=== PATIENT | male | born 1955 | race Caucasian/White ===

== ENCOUNTER 2018-02-13 11:21 | Inpatient (IN) | payer MEDICARE, OTHER ==
[~2018-02-13] VITALS: Ht 167.6 cm; Wt 58.5 kg
[~2018-02-13 11:21] MED LIST changes: -ALLO-119 PO; -ATOR40TA24 PO; -INDO50CA92 PO; -METH4TAB67 PO; -OXYC-865 PO
[2018-02-13] MEDS: NS(*) 0.9% 1000 ML BAG 1,000 ML IV ONE ×2 (11:28→14:10)
--- NOTE | 2018-02-13 11:43 | ER Report ---
History and Physical Time Seen By MD: 11:40 Hx. of Stated Complaint: PT REPORTS RIGHT KNEE PAIN, REPORTS UNABLE TO GET UP FOR LAST FEW DAYS D/T PAIN , REPORTS HAS NOT EATEN OR DRANK ANYTHING SINCE MONDAY. (JARED IYER MD) HPI/ROS CHIEF COMPLAINT: Knee pain and not eating HISTORY OF PRESENT ILLNESS: Severe atraumatic right knee pain. Patient states that his right knee became swollen and acutely painful over the past 3 days. Symptoms began Monday. Because of the extreme pain with weightbearing he is basically lied in bed just ambulated to the bathroom. He states he has not eaten since Monday. Patient does have a history of gout but cannot recall if this feels similar. He denies any fevers or chills. He denies any traumatic injury. REVIEW OF SYSTEMS: Respiratory: No cough, no dyspnea. Cardiovascular: No chest pain, no palpitations. Gastrointestinal: No vomiting, no abdominal pain. Musculoskeletal: Chronic low back pain; right knee pain and swelling (JARED IYER MD) Allergies: Coded Allergies: No Known Drug Allergies (Unverified , 02/13/18) Home Meds Reported Medications Atorvastatin Calcium (LIPITOR) 40 Mg Tablet, 2 TAB PO HS, TAB 02/13/18 Allopurinol (ZYLOPRIM) 300 Mg Tablet, 100 MG PO QDAY, TAB 02/13/18 Metoprolol Tartrate (Metoprolol Tartrate) 25 Mg Tablet, 25 MG PO BID 08/09/12 Lisinopril (Lisinopril) 40 Mg Tablet, 20 MG PO DAILY 08/09/12 Hydrochlorothiazide (Hydrochlorothiazide) 25 Mg Tab, 25 MG PO QDAY 08/09/12 Aspirin (Aspirin) 325 Mg Tab, 325 MG PO QDAY 08/09/12 Discontinued Reported Medications Acetaminophen/Hydrocodone (Lortab 5/325 Mg) 5 Mg/325 Mg Tab, 1 TAB PO Q6H Y NO ALCOHOL/DRIVING 01/22/13 Diazepam (Valium) 5 Mg Tab, 5 MG PO TID Y NO ALCOHOL/DRIVING 01/22/13 Sildenafil Citrate (Viagra) 100 Mg Tablet, 50 MG PO PRN 08/09/12 Rosuvastatin Calcium (Crestor) 40 Mg Tablet, 20 MG PO QHS 08/09/12 Meloxicam (Mobic) 7.5 Mg Tablet, 7.5 MG PO DAILY 08/09/12 Hydrocodone Bit/Acetaminophen (Hydrocodone-Apap 10-500 Mg Tab) 1 Each Tablet, 1 EACH PO Q6H Y 08/09/12 Discontinued Scripts Indomethacin (INDOMETHACIN) 50 Mg Capsule, 50 MG PO TID for PAIN, #15 CAPSULE 0 Refills Prov:JARED IYER MD 02/13/18 Oxycodone Hcl/Acetaminophen (PERCOCET 5-325 MG TABLET) 1 Each Tablet, 1-2 EACH PO Q4-6H for PAIN, #25 TAB 0 Refills Prov:JARED IYER MD 02/13/18 Past Medical/Surgical History Past medical history for hypertension past medical history for gout (JARED IYER MD) Hx Smoking: Yes (JARED IYER MD) Constitutional Vital Sign - Last 24 Hours 02/13/18 02/13/18 02/13/18 02/13/18 11:22 11:23 11:30 11:51 Temp 98.2 Pulse 92 81 Resp 16 B/P (MAP) 84/64 84/64 (71) 80/73 (75) Pulse Ox 97 96 O2 Delivery Room Air 02/13/18 02/13/18 02/13/18 02/13/18 12:00 12:21 12:30 12:41 Pulse 94 B/P (MAP) 95/71 (79) 80/70 (73) 85/66 (72) 02/13/18 02/13/18 02/13/18 02/13/18 12:51 13:00 13:05 13:30 Pulse 86 72 B/P (MAP) 104/73 (83) 102/72 (82) Pulse Ox 96 92 02/13/18 02/13/18 02/13/18 13:35 14:00 14:05 Pulse 76 80 B/P (MAP) 108/72 (84) Pulse Ox 93 93 Intake and Output 02/13/18 02/13/18 02/14/18 14:59 22:59 06:59 Intake Total 1000 ml Balance 1000 ml (LAURORA,SHERIF V DO) Physical Exam General appearance: Alert no distress. [Right] knee: There is moderate swelling to the knee proper along with effusion There is no obvious deformity of the knee. There is moderate tenderness range of motion at the knee. The joint is stable with no comparable ligamentous laxity to the knee. There is no tenderness proximal or distal to the knee. Neurologic exam: The patient has normal sensation distal to the injury. Vascular exam: Normal pulses and capillary refill in the foot Skin exam: There is mild erythema over the lateral aspect of the right knee; knee proper sensitive to just light touch. DIFFERENTIAL DIAGNOSIS: After history and physical exam differential diagnosis was considered for knee injury including sprain, fracture, meniscus injury and soft tissue injury; gout; OA; infection (JARED IYER MD) Medical Decision Making Data Points Result Diagram: 02/15/18 0516 02/15/18 0516 Laboratory Hematology Test 02/13/18 00:00 02/13/18 11:25 02/13/18 12:50 Body Fluid Type synovial Body Fluid pH 8.0 pH Body Fluid Crystals None Body Fluid Total Protein 4.7 G/dl Red Blood Count 4.62 M/uL (4.00-5.60) Mean Corpuscular Volume 89.8 fL (80.0-96.0) Mean Corpuscular Hemoglobin 30.1 pg (26.0-33.0) Mean Corpuscular Hemoglobin Concent 33.6 g/dL (32.0-36.0) Red Cell Distribution Width 15.3 % (11.5-14.5) Mean Platelet Volume 8.3 fL (7.2-11.1) Neutrophils (%) (Auto) 81.5 % (39.4-72.5) Lymphocytes (%) (Auto) 12.0 % (17.6-49.6) Monocytes (%) (Auto) 5.9 % (4.1-12.4) Eosinophils (%) (Auto) 0.1 % (0.4-6.7) Basophils (%) (Auto) 0.5 % (0.3-1.4) Nucleated RBC Relative Count (auto) 0.0 /100WBC Neutrophils # (Auto) 10.4 K/uL (2.0-7.4) Lymphocytes # (Auto) 1.5 K/uL (1.3-3.6) Monocytes # (Auto) 0.7 K/uL (0.3-1.0) Eosinophils # (Auto) 0.0 K/uL (0.0-0.5) Basophils # (Auto) 0.1 K/uL (0.0-0.1) Nucleated RBC Absolute Count (auto) 0.00 K/uL Erythrocyte Sedimentation Rate > 130 mm/HOUR (0-20) Sodium Level 137 mmol/L (137-145) Potassium Level 3.9 mmol/L (3.5-5.0) Chloride Level 96 mmol/L (98-107) Carbon Dioxide Level 21 mmol/L (22-30) Blood Urea Nitrogen 37 mg/dl (9-21) Creatinine 1.70 mg/dl (0.66-1.25) Glomerular Filtration Rate Calc 40.9 Random Glucose 155 mg/dl (75-110) Calcium Level 11.0 mg/dl (8.4-10.2) Total Bilirubin 2.5 mg/dl (0.2-1.3) Aspartate Amino Transf (AST/SGOT) 21 U/L (0-35) Alanine Aminotransferase (ALT/SGPT) 18 U/L (0-56) Alkaline Phosphatase 95 U/L (0-126) C-Reactive Protein 35.7 mg/dl (<1.0) Total Protein 8.4 gm/dl (6.3-8.2) Albumin 4.1 g/dl (3.5-5.0) Body Fluid WBC 9273 Body Fluid RBC 7227 Chemistry Test 02/13/18 00:00 02/13/18 11:25 02/13/18 12:50 Body Fluid Type synovial Body Fluid pH 8.0 pH Body Fluid Crystals None Body Fluid Total Protein 4.7 G/dl White Blood Count 12.7 k/uL (4.5-11.0) Red Blood Count 4.62 M/uL (4.00-5.60) Hemoglobin 13.9 g/dL (14.0-18.0) Hematocrit 41.5 % (42.0-52.0) Mean Corpuscular Volume 89.8 fL (80.0-96.0) Mean Corpuscular Hemoglobin 30.1 pg (26.0-33.0) Mean Corpuscular Hemoglobin Concent 33.6 g/dL (32.0-36.0) Red Cell Distribution Width 15.3 % (11.5-14.5) Platelet Count 319 K/uL (150-450) Mean Platelet Volume 8.3 fL (7.2-11.1) Neutrophils (%) (Auto) 81.5 % (39.4-72.5) Lymphocytes (%) (Auto) 12.0 % (17.6-49.6) Monocytes (%) (Auto) 5.9 % (4.1-12.4) Eosinophils (%) (Auto) 0.1 % (0.4-6.7) Basophils (%) (Auto) 0.5 % (0.3-1.4) Nucleated RBC Relative Count (auto) 0.0 /100WBC Neutrophils # (Auto) 10.4 K/uL (2.0-7.4) Lymphocytes # (Auto) 1.5 K/uL (1.3-3.6) Monocytes # (Auto) 0.7 K/uL (0.3-1.0) Eosinophils # (Auto) 0.0 K/uL (0.0-0.5) Basophils # (Auto) 0.1 K/uL (0.0-0.1) Nucleated RBC Absolute Count (auto) 0.00 K/uL Erythrocyte Sedimentation Rate > 130 mm/HOUR (0-20) Glomerular Filtration Rate Calc 40.9 Calcium Level 11.0 mg/dl (8.4-10.2) Total Bilirubin 2.5 mg/dl (0.2-1.3) Aspartate Amino Transf (AST/SGOT) 21 U/L (0-35) Alanine Aminotransferase (ALT/SGPT) 18 U/L (0-56) Alkaline Phosphatase 95 U/L (0-126) C-Reactive Protein 35.7 mg/dl (<1.0) Total Protein 8.4 gm/dl (6.3-8.2) Albumin 4.1 g/dl (3.5-5.0) Body Fluid WBC 9273 Body Fluid RBC 7227 (LAURORA,SHERIF V DO) Microbiology Microbiology Date/Time Source Procedure Growth Status 02/13/18 00:00 Knee Fluid Right Gram Stain - Final Resulted 02/13/18 00:00 Knee Fluid Right Body Fluid Culture Pending Resulted 02/13/18 00:00 Knee Fluid Right Anaerobic Culture Pending Resulted (LAURORA,SHERIF V DO) EKG/Imaging Imaging FACILITY: [facility] [place] PATIENT NAME: Flaco Andrews : 1955 MR: [id number] V: [id number] EXAM DATE: ORDERING PHYSICIAN: JARED IYER TECHNOLOGIST: Location: [facility] - [place] Patient: Flaco Andrews : 1955 Visit/Account:[id number] Date of Sevice: 02/13/2018 Right knee Indication: Severe right knee pain Comparison: None available Findings: 3 views right knee were obtained. Osseous alignment is anatomic. No fracture or acute destructive osseous process. Enthesopathy is seen with spurring superior aspect of patella. Moderate joint effusion. IMPRESSION: 1. Mild degenerative change patellofemoral joint. Moderate effusion without acute osseous finding Report Dictated By: Eulogio Mccormack MD at 02/13/2018 12:32 PM Report E-Signed By: Eulogio Mccormack MD at 02/13/2018 12:33 PM WSN:[id number] (JARED IYER MD) ED Course/Re-evaluation ED Course Plan at this time we'll place an IV and given normal saline bolus. We will check CBC CMP x-ray of the right knee. We will obtain fluid for synovial analysis, culture, Gram stain. We'll give 50 mg Toradol and 50 mg of fentanyl for pain IV. Procedure: Arthrocentesis. After verbal informed consent from patient explaining the risks including infection and bleeding a arthrocentesis was performed on the knee. The arthrocentesis was performed after the patient was prepped and draped in the usual fashion. The joint was anesthetized with 1% lidocaine. Approximately 40 mL of yellow cloudy fluid was obtained. There were no complications. Fluid was sent for laboratory analysis including white cell count, Red cell count, crystal analysis, pH, protein, Gram stain, aerobic and anaerobic cultures. The procedure was performed by myself. 02/13/2018 2:39:06 pm awaiting results of synovial analysis. Gram stain however shows no organisms. Patient still having a fair amount of pain he is received a total of 300 mg of fentanyl, 50 mg of Toradol and 50 mg of indomethacin. We are going to have physical therapy come and evaluate the patient for crutches. If patient is able to we will discharge home with a prescription for indomethacin as well as Percocet. If patient is unable to ambulate on his own because he lives alone I did speak with Dr. Tuttle with guard to this patient. He states he would accept the patient for admission if he is unable to ambulate and care for himself. Decision to Disposition Date: Feb 13, 2018 Decision to Disposition Time: 16:00 (JARED IYER MD) ED Course 02/13/2018 3:20:25 pm Pt signed out to me pending synovial fluid analysis. pts has no crystals in the synovial fluid. this could be an early septic joint. Will draw blood cultures and start abx. will page orthopedics and hospitalist. 02/13/2018 3:28:12 pm Call out to DR. Cutler 02/13/2018 3:38:43 pm Still awaiting orthopedics. Did speak with Dr. Tuttle who accepts pt for admission Decision to Disposition Date: Feb 13, 2018 Decision to Disposition Time: 15:39 (SHERIF HDEZ DO) Depart Departure Latest Vital Signs Vital Signs Date Time Temp Pulse Resp B/P (MAP) Pulse Ox O2 Delivery O2 Flow Rate FiO2 02/13/18 14:05 80 93 02/13/18 14:00 108/72 (84) 02/13/18 11:22 98.2 16 Room Air (SHERIF HDEZ DO) Impression: Primary Impression: Cellulitis of knee, right Additional Impressions: Septic joint of right knee joint Knee pain, acute Disposition: Admitted from ER Problem Qualifiers Additional Impressions: Septic joint of right knee joint Septic arthritis organism: due to unspecified organism Qualified Codes: M00.9 - Pyogenic arthritis, unspecified Knee pain, acute Laterality: right Qualified Codes: M25.561 - Pain in right knee JARED IYER MD Feb 13, 2018 11:43 SHERIF HDEZ DO Feb 13, 2018 15:23
[2018-02-13] MEDS ORDERED: KETOROLAC 15 MG/ML VIAL IVP ONE (11:55)
[2018-02-13] MEDS ORDERED: fentaNYL CITR 100 MCG/2 ML AMP IVP ONE ×2 (11:55→13:45)
[2018-02-13 12:04] LABS: PLATELET COUNT, AUTOMATED 319 K/uL (150-450)
--- NOTE | 2018-02-13 12:37 | RADIOLOGY IMAGING REPORT ---
FACILITY: [facility] - [place] PATIENT NAME: Flaco Andrews : 1955 MR: [id number] V: [id number] EXAM DATE: ORDERING PHYSICIAN: JARED IYER TECHNOLOGIST: Location: [facility] - [place] Patient: Flaco Andrews : 1955 Visit/Account:[id number] Date of Sevice: 02/13/2018 Right knee Indication: Severe right knee pain Comparison: None available Findings: 3 views right knee were obtained. Osseous alignment is anatomic. No fracture or acute destructive osseous process. Enthesopathy is se en with spurring superior aspect of patella. Moderate joint effusion. IMPRESSION: 1. Mild degenerative change patellofemoral joint. Moderate effusion without acute osseous finding Report Dictated By: Eulogio Mccormack MD at 02/13/2018 12:32 PM Report E-Signed By: Eulogio Mccormack MD at 02/13/2018 12:33 PM WSN:[id number]
[2018-02-13] MEDS ORDERED: INDOMETHACIN 25 MG CAP PO ONE (14:00)
[2018-02-13] MEDS ORDERED: INDO50CA92 PO (14:43)
[2018-02-13] MEDS ORDERED: OXYC-865 PO (14:43)
[2018-02-13] MEDS ORDERED: cefTRIAXone 1 GM VIAL IVP ONE (15:40)
[2018-02-13] MEDS ORDERED: NS 0.9% IVPB ONE (15:40)
[2018-02-13] MEDS ORDERED: VANCOMYCIN IVPB ONE (15:40)
[2018-02-13] MEDS ORDERED: NS(*) 0.9% 1000 ML BAG 1,000 ML IV ONE (15:50)
[2018-02-13] MEDS ORDERED: VANCOMYCIN 1 GM ADDVIAL 1 GM in NS(*) 0.9% 250 ML ADDVAN BAG 250 ML IVPB ONE (15:50)
[2018-02-13 16:46] VITALS: BP 99/77
[2018-02-13] MEDS ORDERED: methylPREDNIS 4 MG TAB PO ONE ×2 (17:55→19:00)
[2018-02-13] MEDS ORDERED: ACETAMINOPHEN 500 MG TAB PO PRN (17:55)
[2018-02-13] MEDS ORDERED: INFLUENZA VIRUS VAC 0.5 ML SYR IM ONLY ONE (18:10)
--- NOTE | 2018-02-13 18:17 | History & Physical ---
History of Present Illness Chief Complaint Knee pain History of Present Illness This patient presented to the emergency room complaining of right knee pain. He reports that the pain started about 5 days ago and has progressed to the point where he could no longer get out of bed. He also reports being unable to eat or drink secondary to his limited mobility. He denies any fever or chills. History Problems: (1) Essential hypertension (2) Myocardial infarction (3) Gout Home Meds Active Scripts Indomethacin (INDOMETHACIN) 50 Mg Capsule, 50 MG PO TID for PAIN, #15 CAPSULE 0 Refills Prov:JARED IYER MD 02/13/18 Oxycodone Hcl/Acetaminophen (PERCOCET 5-325 MG TABLET) 1 Each Tablet, 1-2 EACH PO Q4-6H for PAIN, #25 TAB 0 Refills Prov:JARED IYER MD 02/13/18 Reported Medications Acetaminophen/Hydrocodone (Lortab 5/325 Mg) 5 Mg/325 Mg Tab, 1 TAB PO Q6H Y NO ALCOHOL/DRIVING 01/22/13 Diazepam (Valium) 5 Mg Tab, 5 MG PO TID Y NO ALCOHOL/DRIVING 01/22/13 Sildenafil Citrate (Viagra) 100 Mg Tablet, 50 MG PO PRN 08/09/12 Rosuvastatin Calcium (Crestor) 40 Mg Tablet, 20 MG PO QHS 08/09/12 Metoprolol Tartrate (Metoprolol Tartrate) 25 Mg Tablet, 25 MG PO BID 08/09/12 Meloxicam (Mobic) 7.5 Mg Tablet, 7.5 MG PO DAILY 08/09/12 Lisinopril (Lisinopril) 40 Mg Tablet, 20 MG PO DAILY 08/09/12 Hydrocodone Bit/Acetaminophen (Hydrocodone-Apap 10-500 Mg Tab) 1 Each Tablet, 1 EACH PO Q6H Y 08/09/12 Hydrochlorothiazide (Hydrochlorothiazide) 25 Mg Tab, 25 MG PO QDAY 08/09/12 Aspirin (Aspirin) 325 Mg Tab, 325 MG PO QDAY 08/09/12 Allergies: Coded Allergies: No Known Drug Allergies (Unverified , 02/13/18) Hx Smoking: Yes Smoking Status: Current: Every Day Smoker Caffeine Intake: Coffee Caffeine/Cups Per Day: OCC Hx Alcohol Use: No Hx Substance Use Disorder: No Review of Systems All Systems Reviewed/Normal: Yes, Except as Noted Musculoskeletal: Pain Exam Vital Signs Vital Signs Date Time Temp Pulse Resp B/P (MAP) Pulse Ox O2 Delivery O2 Flow Rate FiO2 02/13/18 16:46 98.1 75 14 99/77 (84) 94 Room Air Neuro: No Gross deficits Eyes: PERRLA Cardiovascular: Regular Rate and Rhythm Respiratory: Clear to Auscultation GI: Abd Soft and Non-Tender Musculoskeletal: Other (Right knee has minimal erythema, there is an effusion present and knee flexion is limited.) Extremities: No Edema Integumentary: No Cyanosis Medical Decision Making Data Points Result Diagram: 02/13/18 1125 02/13/18 1125 Item Value Date Time Body Fluid WBC 9273 02/13/18 1250 Body Fluid RBC 7227 02/13/18 1250 Body Fluid Neutrophils 77 % 02/13/18 1250 Body Fluid Lymphocytes 21 % 02/13/18 1250 Body Fluid Monocytes 2 % 02/13/18 1250 Body Fluid Crystals None 02/13/18 0000 Item Value Date Time C-Reactive Protein 35.7 mg/dl H 02/13/18 1125 Item Value Date Time Gram Stain - Final Resulted 02/13/18 0000 Knee Fluid Right Assessment and Plan Problems: (1) Septic joint of right knee joint Status: Acute Assessment & Plan: It is not definitive whether this is an infection, but given the lack of clarity we have elected to continue antibiotics until culture results are available. He is on empiric treatment with ceftriaxone and vancomycin. He did not receive a loading dose in the emergency department, but we have dosed his future doses based on his GFR. We did talk with Dr. Elmore, who recommended that we also start a Medrol Dose Pack. The joint fluid was negative for crystals. A uric acid level is pending. (2) Gout Assessment & Plan: He does have a history of gout in the past. Uric acid is pending as above. (3) Essential hypertension Assessment & Plan: He is on chronic treatment with hydrochlorothiazide, lisinopril, and metoprolol. All of these are currently on hold secondary to borderline blood pressure. Venous Thromboembolism Antithrombotics Is Pt On Any Antithrombotics?: No Exam Sepsis Risk: No Definite Risk Problem Qualifiers (1) Septic joint of right knee joint: Septic arthritis organism: due to unspecified organism Qualified Codes: M00.9 - Pyogenic arthritis, unspecified BOB DUGAN 5, 2018 18:17
[2018-02-13 19:38] VITALS: BP 86/64
[2018-02-13] MEDS: APAP/HYDROCODONE 325/5 TAB PO PRN (21:31)
[2018-02-13] MEDS: ATORVASTATIN 40 MG TAB PO SCH (21:31)
[2018-02-13] MEDS ORDERED: ALLO-119 PO (23:26)
[2018-02-13] MEDS ORDERED: ATOR40TA24 PO (23:29)
[2018-02-13 23:39] VITALS: BP 93/58
[2018-02-13] MEDS: NS(*) 0.9% 1000 ML BAG 1,000 ML IV PRN (23:47)
[2018-02-14] MEDS: APAP/HYDROCODONE 325/5 TAB PO PRN ×5 (03:25→20:04)
[2018-02-14 03:26] VITALS: BP 103/68
[2018-02-14 05:44] LABS: PLATELET COUNT, AUTOMATED 216 K/uL (150-450)
[2018-02-14 07:52] VITALS: BP 101/72
[2018-02-14] MEDS: ALLOPURINOL 100 MG TAB PO SCH (09:34)
[2018-02-14] MEDS: methylPREDNIS 4 MG TAB PO SCH ×2 (09:35→20:04)
[2018-02-14 10:20] VITALS: Ht 167.6 cm; Wt 58.5 kg
[2018-02-14 10:36] VITALS: BP 87/53
--- NOTE | 2018-02-14 10:40 | Antimicrobial Stewardship ---
Antimicrobial Stewardship MD Service: Hospitalist Indications: Other (Septic Knee) Antimicrobial Allergies NKDA Antimicrobial Used Vancomycin and Ceftriaxone Duration of Therapy: duration will be dependent upon ortho recommendations ( likely 14 days +) Start Date: Feb 13, 2018 Height (Calculated Centimeters: 167.167229 Weight (Calculated Kilograms): 58.769 Creatinine Cl Scr = 1.6, Cr CL = 48 ml/min Recommendations re: Culture Cultures pending, blood and knee aspirate Eligable for PO Conversion: No Comments Potential septic joint (knee aspirate, no crystals, 9000+ WBCs, CRP 35.7, ESR> 130), afebrile, elevated WBC. Cultures pending. Current therapy Vancomycin 1g x 1, then 1.25g IV q24h (trough 02/15/18 at 1000), Ceftriaxone 2g IV Q24H. Continue present management. Will follow cultures and reassess daily. Jing Sharp, PharmD, BCOP JING SHARP Feb 14, 2018 10:40
[2018-02-14] MEDS ORDERED: VANCOMYCIN(*) 1 GM VIAL 1 GM, VANCOMYCIN (*) 0.5 GM VIAL 0.25 GM in NS(*) 0.9% 250 ML B... IVPB SCH (11:00)
--- NOTE | 2018-02-14 11:03 | Hospitalist Progress Note ---
Subjective Progress Notes Subjective He reports pain is improved. No fever. Physical Exam Vital Signs Date Time Temp Pulse Resp B/P (MAP) Pulse Ox O2 Delivery O2 Flow Rate FiO2 02/14/18 10:36 97.7 12 87/53 (64) Room Air 02/14/18 07:54 93 02/14/18 07:52 83 Intake and Output 02/15/18 06:59 Intake Total 480 ml Output Total 225 ml Balance 255 ml Intake Oral 480 ml Output Urine Total 225 ml # Voids 1 General Appearance: Alert, Awake Cardiovascular: Regular Rate and Rhythm Respiratory: Clear to Auscultation GI: Soft and Non-Tender Extremities: Warm, Perfused, Other (right knee with small-moderate effusion/no callor/erythema noted/decreased ROM) Psych: Alert & Oriented X3 Result Diagram: 02/14/1851902/14/18 05 Assessment and Plan Problems: (1) Septic joint of right knee joint Status: Acute Assessment & Plan: It is not definitive whether this is an acute infection ( vs. gout), but given the lack of clarity we have elected to continue antibiotics until culture results are final. He is on empiric treatment with IV ceftriaxone and vancomycin. Dr. Tuttle did talk with Dr. Elmore, who recommended that we also start a Medrol Dose Pack. The joint fluid was negative for crystals and uric acid level is in normal range. 24 hour collection for uric acid is pending. (2) Gout Assessment & Plan: He does have a history of gout in the past. Uric acid 24 hour collection is pending as above. (3) Essential hypertension Assessment & Plan: He is on chronic treatment with hydrochlorothiazide, lisinopril, and metoprolol. All of these are currently on hold secondary to borderline blood pressure readings/dehydration. Exam Sepsis Risk: No Definite Risk Problem Qualifiers (1) Septic joint of right knee joint: Septic arthritis organism: due to unspecified organism Qualified Codes: M00.9 - Pyogenic arthritis, unspecified MARIA ESTHER STOUT MD Feb 14, 2018 11:02
[2018-02-14] MEDS: NS(*) 0.9% 1000 ML BAG 1,000 ML IV PRN (11:40)
[2018-02-14] MEDS ORDERED: methylPREDNIS 4 MG TAB PO SCH (13:00)
[2018-02-14] MEDS: cefTRIAXone 2 GM VIAL IVP SCH (15:54)
[2018-02-14] MEDS ORDERED: VANCOMYCIN HCL(*) 0.750 GM ADD 0.75 GM in NS(*) 0.9% 250 ML ADDVAN BAG 250 ML IVPB SCH (16:00)
[2018-02-14 16:12] VITALS: BP 108/66
[2018-02-14 20:01] VITALS: BP 118/81
[2018-02-14] MEDS: ATORVASTATIN 40 MG TAB PO SCH (20:04)
[2018-02-15 02:03] VITALS: BP 137/96
[2018-02-15] MEDS: APAP/HYDROCODONE 325/5 TAB PO PRN ×5 (05:05→21:42)
[2018-02-15 05:54] LABS: PLATELET COUNT, AUTOMATED 269 K/uL (150-450)
[2018-02-15 07:33] VITALS: BP 119/85
[2018-02-15] MEDS ORDERED: methylPREDNIS 4 MG TAB PO ONE ×2 (08:00→21:00)
[2018-02-15] MEDS: ALLOPURINOL 100 MG TAB PO SCH (08:53)
[2018-02-15] MEDS: methylPREDNIS 4 MG TAB PO SCH ×3 (08:54→17:47)
[2018-02-15] MEDS: VANCOMYCIN(*) 1 GM VIAL 1 GM in NS(*) 0.9% 250 ML ADDVAN BAG 250 ML IVPB SCH ×2 (10:43→22:38)
--- NOTE | 2018-02-15 11:17 | Hospitalist Progress Note ---
Subjective Progress Notes Subjective No new complaints. Knee pain is improved. Physical Exam Vital Signs Date Time Temp Pulse Resp B/P (MAP) Pulse Ox O2 Delivery O2 Flow Rate FiO2 02/15/18 07:45 94 Room Air 02/15/18 07:33 98.5 77 16 119/85 (96) Intake and Output 02/16/18 06:59 Intake Total 540 ml Balance 540 ml Intake Oral 540 ml # Voids 1 General Appearance: Alert, Awake Neuro: No Gross deficits Eyes: PERRLA Cardiovascular: Regular Rate and Rhythm Respiratory: Clear to Auscultation GI: Soft and Non-Tender Extremities: Warm, Perfused, Other (R knee with moderate effusion. No increased warmth to touch. ) Integumentary: Other (Bandage over arthrocentesis site, medial R knee.) Psych: Appropriate Mood & Affect Result Diagram: 02/15/1851502/15/18515 Assessment and Plan Problems: (1) Septic joint of right knee joint Status: Acute Assessment & Plan: It is not definitive whether this is an acute infection ( vs. gout), but given the lack of clarity we have elected to continue antibiotics until culture results are final. All cultures are no growth to date. He is on empiric treatment with IV ceftriaxone and vancomycin. His renal function has improved and his Vanco dose has been adjusted. Dr. Tuttle did talk with Dr. Elmore, who recommended that we also start a Medrol Dose Pack. The patient feels much better today. The joint fluid was negative for crystals and uric acid level is in normal range. 24 hour collection for uric acid is pending. The patient was quite dehydrated on admission (Cr 1.7) and the patient admits he does not drink fluids hardly ever at home. (2) Gout Assessment & Plan: He does have a history of gout in the past. Uric acid 24 hour collection is pending as above. (3) Essential hypertension Assessment & Plan: He is on chronic treatment with hydrochlorothiazide, lisinopril, and metoprolol. All of these are currently on hold secondary to borderline blood pressure readings/dehydration. Time Spent on Plan of Care: < 30 min Exam Sepsis Risk: No Definite Risk Problem Qualifiers (1) Septic joint of right knee joint: Septic arthritis organism: due to unspecified organism Qualified Codes: M00.9 - Pyogenic arthritis, unspecified SARAH STOUT MD Feb 15, 2018 11:17
[2018-02-15 11:39] VITALS: BP 129/89
[2018-02-15] MEDS: NS(*) 0.9% 1000 ML BAG 1,000 ML IV PRN (12:30)
--- NOTE | 2018-02-15 14:29 | Medical Nutrition Therapy ---
Nutrition Anthropometrics Height (Inches): 66.00 Height (Calculated Centimeters: 167.233282 Weight (Pounds): 129 Weight (Calculated Kilograms): 58.769 Daniel Nutrition Score: Adequate Daniel Nutrition Risk Score: 18 Dietary Referral Nutrition Risk Factors: Nutrition Risk Comment: Physical Findings Physical Appearance: BMI 20.9 WNR Skin Appearance Skin Appearance: Edema Edema Location Modifier: Edema Location: Type of Edema: Degree of Edema: Gastrointestinal Symptoms GI Symtoms: Tube Present: Bowel Sounds: Recent Bowel Pattern: Stool Characteristics: Nutritional Diagnosis Nutritional Risk Acuity 2: Sepsis Nutritional Risk Acuity 4: Stable Weight Past Medical History: Cellulitis of knee, myocardial infarction, Gout, HTN, septic joint of right knee Nutritional Acuity: 2-Moderate Nutrition Diagnosis: Inadequate Food Intake Nutrition Problem/Etiology/Sym: Increase nutrient needs related to physiological causes as evidence by joint sepsis. Energy Requirement: 1898 (Ector-St. Jeor X 1.1 SF) Protein Requirement: 65 (1.1g/kg protein to help with healing) Fluid Requirement: 1898 (1ml/kcal) Diet Type: Diet as Tolerated HOWARD/REG Nutrition Intervention: Cont diet as ordered, Encourage intake, HS snack ( PROTEIN SHAKE ) Nutrition Monitoring & Eval RD Patient Assessment Time: [address] Assessment Type: RD Screen Patient Nutrition Acuity: 2-Moderate Follow Up Date: Feb 19, 2018 Nutritional Comment: 02/14 Pt admitted for septic joint in right knee. Pt states he has severe pain in right knee. Pt states he was unable to eat and drink since Monday, due to knee mobility. Pt has elevated creatinine (1.6) and BUN (45), possibly cause due to hydration status. Pt is on regular diet with 100% oral intake. Continue to monitor pt progress, labs and encourage intake. [place] 02/15 Pt continues on regular diet with 100% oral intake. Offer pt protein shakes to rod buster helper in wound healing. Pt states his knee pain has improved. Pt renal function has improved, creatinine (.9) where yesterday it was (1.6). Na (135), BUN decreased from (45 to 31). Pt does have elevated random blood glucose (139). Continue to monitor pt clinical progress, labs and encourage intake. [place] PATY [place] Feb 15, 2018 12:45
[2018-02-15] MEDS: cefTRIAXone 2 GM VIAL IVP SCH (15:18)
[2018-02-15 16:05] VITALS: BP 146/94
[2018-02-15 19:46] VITALS: BP 158/97
[2018-02-15] MEDS: ATORVASTATIN 40 MG TAB PO SCH (21:41)
[2018-02-15 23:22] VITALS: BP 118/71
[2018-02-16] MEDS: NS(*) 0.9% 1000 ML BAG 1,000 ML IV PRN (00:40)
[2018-02-16] MEDS: APAP/HYDROCODONE 325/5 TAB PO PRN ×3 (02:31→10:42)
[2018-02-16 03:11] VITALS: BP 133/78
[2018-02-16 06:19] LABS: PLATELET COUNT, AUTOMATED 296 K/uL (150-450)
[2018-02-16 07:41] VITALS: BP 151/94
[2018-02-16] MEDS: methylPREDNIS 4 MG TAB PO SCH ×2 (08:00→12:50)
[2018-02-16] MEDS ORDERED: methylPREDNIS 4 MG TAB PO ONE (08:00)
[2018-02-16] MEDS: ALLOPURINOL 100 MG TAB PO SCH (08:47)
[2018-02-16] MEDS ORDERED: LOR5/325 PO (09:47)
[2018-02-16] MEDS ORDERED: METH4TAB67 PO (09:47)
--- NOTE | 2018-02-16 09:51 | Hospitalist Depart ---
Discharge Summary Reason for Hosp/Final Diag: (1) Septic joint of right knee joint Status: Acute Hospital Course & Plan: He did present with pain and swelling of the right knee. He did have an arthrocentesis performed in the emergency room. We placed him on empiric treatment with ceftriaxone and vancomycin. We also placed him on methylprednisolone for treatment of possible acute gout. His fluid was negative for crystals, but cultures were also negative. We have stopped the antibiotics and placed him on a taper of steroids. (2) Gout Hospital Course & Plan: He does have a history of gout in the past. Uric acid 24 hour collection is pending. (3) Essential hypertension Hospital Course & Plan: He is on chronic treatment with hydrochlorothiazide, lisinopril, and metoprolol. The diuretic has been discontinued. Departure Latest Vital Signs Vital Signs 02/16/18 07:41 Temp 97.7 Pulse 63 Resp 18 B/P (MAP) 151/94 (113) Pulse Ox 95 O2 Delivery Room Air Weight (Pounds): 129 Weight (Ounces): 9.0 Result Diagram: 02/16/18 0545 02/16/18 0545 Condition: Improved Discharge: Home, Self Care Discharge Instructions Home Meds Active Scripts Methylprednisolone (METHYLPREDNISOLONE) 4 Mg Tablet, 4 MG PO DIRECTED, #10 TAB Take 1 tab QID x 1 day, then 1 tab TID x 1 day, then 1 tab BID x 1 day, then 1 tab QD x 1 day Prov:BOB DUGAN DO 02/16/18 Hydrocodone Bit/Acetaminophen (HYDROCODON-ACETAMINOPHEN 5-325) 1 Each Tablet, 1 EACH PO Q4H Y for PAIN, #20 TAB Prov:BOB DUGAN DO 02/16/18 Reported Medications Atorvastatin Calcium (LIPITOR) 40 Mg Tablet, 2 TAB PO HS, TAB 02/13/18 Allopurinol (ZYLOPRIM) 300 Mg Tablet, 100 MG PO QDAY, TAB 02/13/18 Metoprolol Tartrate (Metoprolol Tartrate) 25 Mg Tablet, 25 MG PO BID 08/09/12 Lisinopril (Lisinopril) 40 Mg Tablet, 20 MG PO DAILY 08/09/12 Aspirin (Aspirin) 325 Mg Tab, 325 MG PO QDAY 08/09/12 Discontinued Reported Medications Hydrochlorothiazide (Hydrochlorothiazide) 25 Mg Tab, 25 MG PO QDAY 08/09/12 Acetaminophen/Hydrocodone (Lortab 5/325 Mg) 5 Mg/325 Mg Tab, 1 TAB PO Q6H Y NO ALCOHOL/DRIVING 01/22/13 Diazepam (Valium) 5 Mg Tab, 5 MG PO TID Y NO ALCOHOL/DRIVING 01/22/13 Sildenafil Citrate (Viagra) 100 Mg Tablet, 50 MG PO PRN 08/09/12 Rosuvastatin Calcium (Crestor) 40 Mg Tablet, 20 MG PO QHS 08/09/12 Meloxicam (Mobic) 7.5 Mg Tablet, 7.5 MG PO DAILY 08/09/12 Hydrocodone Bit/Acetaminophen (Hydrocodone-Apap 10-500 Mg Tab) 1 Each Tablet, 1 EACH PO Q6H Y 08/09/12 Discontinued Scripts Indomethacin (INDOMETHACIN) 50 Mg Capsule, 50 MG PO TID for PAIN, #15 CAPSULE 0 Refills Prov:JARED IYER MD 02/13/18 Oxycodone Hcl/Acetaminophen (PERCOCET 5-325 MG TABLET) 1 Each Tablet, 1-2 EACH PO Q4-6H for PAIN, #25 TAB 0 Refills Prov:JARED IYER MD 02/13/18 Diet: Regular Activity: As Tolerated Venous Thromboembolism Antithrombotics Is Pt On Any Antithrombotics?: No Problem Qualifiers (1) Septic joint of right knee joint: Septic arthritis organism: due to unspecified organism Qualified Codes: M00.9 - Pyogenic arthritis, unspecified BOB DUGAN DO Feb 16, 2018 09:51
[2018-02-16 11:05] VITALS: BP 140/79
--- NOTE | 2018-02-16 12:43 | RADIOLOGY IMAGING REPORT ---
FACILITY: [facility] PATIENT NAME: Flaco Andrews : 1955 MR: [id number] V: [id number] EXAM DATE: ORDERING PHYSICIAN: BOB DUGAN TECHNOLOGIST: Location: [facility] - [place] Patient: Flaco Andrews : 1955 Visit/Account:[id number] Date of Sevice: 02/16/2018 EXAMINATION: Right LOWER EXTREMITY VENOUS DOPPLER ULTRASOUND DATE: 02/16/2018 12:35 PM CLINICAL INFORMATION: US REASON FOR STUDY: History of DVT TECHNIQUE: Grayscale, color Doppler, and spectral Doppler ultrasound was performed of the lower extre mity veins to evaluate for deep venous thrombosis. COMPARISON: None FINDINGS: The right common femoral, femoral, and popliteal veins are compressible with normal flow on color Dop pler imaging. There is also normal Doppler flow of the profunda femoris and greater saphenous veins a t the confluence with the common femoral vein. The right posterior tibial and peroneal veins demonstrate normal flow IMPRESSION: No evidence of deep venous thrombosis in the right lower extremity veins. Report Dictated By: Rosita Liu MD at 02/16/2018 12:35 PM Report E-Signed By: Rosiat Liu MD at 02/16/2018 12:39 PM WSN:[id number]
[2018-02-17] MEDS ORDERED: methylPREDNIS 4 MG TAB PO ONE (08:00)
[2018-02-17] MEDS ORDERED: methylPREDNIS 4 MG TAB PO SCH (08:00)
[2018-02-18] MEDS ORDERED: methylPREDNIS 4 MG TAB PO ONE (08:00)
[2018-02-18] MEDS ORDERED: methylPREDNIS 4 MG TAB PO SCH (08:00)
[2018-02-19] MEDS ORDERED: methylPREDNIS 4 MG TAB PO SCH (08:00)
== END 2018-02-16 12:55 | disposition home or self-care (01) | DRG 550 ==
LOC: ER 11:31 → MED 16:14
PROVIDERS: ADMIT Family Medicine; ATTEND Family Medicine
DX: M00.9 Pyogenic arthritis, unspecified (principal); E86.0 Dehydration; I10 Essential (primary) hypertension; M1A.9XX0 Chronic gout, unspecified, without tophus (tophi); I25.2 Old myocardial infarction; Z95.5 Presence of coronary angioplasty implant and graft
CPT/HCPCS: 36415; 80202; 82040; 82247; 82310; 82374; 82435; 82565; 82945; 82947; 83986; 84075; 84132; 84155; 84157; 84295; 84450; 84460; 84520; 84550; 84560; 85025; 85651; 86140; 87040; 87071; 87073; 87205; 89050; 89060; J0696; J1885; J3010; J3370; J7030; J7050; J7509

== ENCOUNTER → 2018-02-13 | Outpatient (CLI) | payer OTHER ==
[~2018-02-13] MED LIST: ALLO-119 PO; ASP325 PO; ATOR40TA24 PO; DIA5 PO; HCTZ25 PO; HYDR-3629 PO; INDO50CA92 PO; LISI-374 PO; LOR5/325 PO; MELO-149 PO; METH4TAB67 PO; METO25TA93 PO; OXYC-717 PO; OXYC-865 PO; ROSU40TA18 PO; SILD100T59 PO; [UNRECOGNIZED DRUG - REMARK]
[2018-02-14 10:20] VITALS: BMI 20.8
== END ==
LOC: AMB 10:56
PROVIDERS: ATTEND Nurse Practitioner
DX: M25.561 Pain in right knee (principal)
CPT/HCPCS: A0425; A0427

== ENCOUNTER 2018-02-16 13:47 | Outpatient (RCR) | payer OTHER ==
[2018-02-14 10:20] VITALS: BMI 20.8
[~2018-02-16 13:47] MED LIST changes: +ALLO-119 PO; +ATOR40TA24 PO; +INDO50CA92 PO; +METH4TAB67 PO; +OXYC-865 PO
--- NOTE | 2018-02-17 13:03 | Transitional Care Management ---
Assessment Visit Type: Home Visit Spoke with: Flaco Cardiac: WNL Cardiac Comment: 02/17 Encouraged him to check his blood pressure. He does not have a device, but I recomended walking to [facility] to use the machine in the pharmacy. Respiratory: WNL GI: Nutrition: WNL Constipation?: No : WNL Musculoskeletal, Exercise: WNL Except Musculoskeletal, Excercise Com: 02/17 Right knee is still very sore. He usses a walker. Mobility Comment: 02/17 I helped him clear walkways. He lives in a one room apt with no storage, so many items are on the floor. Integumentary: WNL Feeling of Well Being: WNL Except Feeling of Well Being Comment: "I am going to have back surgery on 03/02. Suzette worried about that." Socialization: WNL Except Socialization Comment: 02/17 He has no family in the area, and has little contact with them. Has no close friends. His landlord checks in on him. Pain/Management: WN Except Pain/Management Comment: 02/17 He has chronic back pain that is unchanged. Right knee pain is better. He is taking pain pills as ordered. Scheduled Follow-Up with Provi: Yes (02/17 he sees his PCP on 02/22 for surgery clearence.) Questions for Future PCP Visit: Review medications. Following Discharge Instructio: Yes TCM Discharge Criteria Medication Knowledge: 02/17 We reviewed his medications. I encouraged him to keep a list of current medications in his wallet. Transitional Care Comment: 02/15 He agrees to the program, but declines the home visit. We discussed the need for him to be familiar with his medications, and carry a current list with him. 02/17 I reviewed his med name and purpose, next time I will work on doses. He moves safetly with a walker. Sees his PCP 02/22, I will call him 02/23. ADRIENNE REDDY Feb 17, 2018 13:03
--- NOTE | 2018-02-26 11:30 | Transitional Care Management ---
Assessment Cardiac: WNL Cardiac Comment: 02/17 Encouraged him to check his blood pressure. He does not have a device, but I recomended walking [facility] to use the machine in the pharmacy. Respiratory: WNL GI: Nutrition: WNL Constipation?: No : WNL Musculoskeletal, Exercise: WNL Except Musculoskeletal, Excercise Com: 02/17 Right knee is still very sore. He usses a walker. Mobility Comment: 02/17 I helped him clear walkways. He lives in a one room apt with no storage, so many items are on the floor. Integumentary: WNL Feeling of Well Being: WNL Except Feeling of Well Being Comment: "I am going to have back surgery on 03/02. Suzette worried about that." Socialization: WNL Except Socialization Comment: 02/17 He has no family in the area, and has little contact with them. Has no close friends. His landlord checks in on him. Pain/Management: WN Except Pain/Management Comment: 02/17 He has chronic back pain that is unchanged. Right knee pain is better. He is taking pain pills as ordered. Scheduled Follow-Up with Provi: Yes (02/17 he sees his PCP on 02/22 for surgery clearence.) Questions for Future PCP Visit: Review medications. Following Discharge Instructio: Yes TCM Discharge Criteria Medication Knowledge: 02/17 We reviewed his medications. I encouraged him to keep a list of current medications in his wallet. Transitional Care Comment: 02/15 He agrees to the program, but declines the home visit. We discussed the need for him to be familiar with his medications, and carry a current list with him. 02/17 Home visit. I reviewed his med name and purpose, next time I will work on doses. He moves safetly with a walker. Sees his PCP 02/22, I will call him 02/23. 02/23 Unable to contact, The phone number he has provided goes straight to voicemail, and the voice says the voicemail belongs to John. 02/26 Unable to contact, incorrect phone number. Discharged from the program. ADRIENNE REDDY Feb 26, 2018 11:30
== END 2018-02-26 12:59 | disposition home or self-care (01) ==
LOC: TCM 13:47
PROVIDERS: ATTEND Nurse Practitioner
DX: Z02.9 Encounter for administrative examinations, unspecified (principal)

== ENCOUNTER 2018-03-21 09:29 | Emergency (ER) | payer OTHER ==
[2018-02-14 10:20] VITALS: Wt 56.7 kg
[~2018-03-21 09:29] MED LIST changes: -SULF-198 PO
--- NOTE | 2018-03-21 09:40 | ER Report ---
History and Physical Time Seen By MD: 09:39 Hx. of Stated Complaint: EMS REPORTS THAT THE PATIENT FEELS HE HIS HAVING A FLARE-UP OF HIS GOUT HPI/ROS CHIEF COMPLAINT: Left hand pain and swelling HISTORY OF PRESENT ILLNESS: 62-year-old male long history of spondylosis of the spine and chronic back pain chronic leg discomfort comes in today with some swelling to his left hand does state he has a history of gout last time he took his oxycodone was several weeks ago patient states that he noticed before 5 days ago some redness and swelling in the 1st and 2nd metacarpal of the left hand nondominant patient denies any fever chills or sweats nausea vomiting urinary bladder bowel incontinence numbness or saddle paresthesias or distal complaints noted REVIEW OF SYSTEMS: Respiratory: No cough, no dyspnea. Cardiovascular: No chest pain, no palpitations. Gastrointestinal: No vomiting, no abdominal pain. Musculoskeletal: Left hand redness and pain Remainder of the 14 system rev: Yes Allergies: Coded Allergies: No Known Drug Allergies (Unverified , 02/13/18) Home Meds Active Scripts Methylprednisolone (METHYLPREDNISOLONE) 4 Mg Tablet, 4 MG PO DIRECTED, #10 TAB Take 1 tab QID x 1 day, then 1 tab TID x 1 day, then 1 tab BID x 1 day, then 1 tab QD x 1 day Prov:BOB DUGAN DO 02/16/18 Hydrocodone Bit/Acetaminophen (HYDROCODON-ACETAMINOPHEN 5-325) 1 Each Tablet, 1 EACH PO Q4H Y for PAIN, #20 TAB Prov:BOB DUGAN DO 02/16/18 Reported Medications Atorvastatin Calcium (LIPITOR) 40 Mg Tablet, 2 TAB PO HS, TAB 02/13/18 Allopurinol (ZYLOPRIM) 300 Mg Tablet, 100 MG PO QDAY, TAB 02/13/18 Metoprolol Tartrate (Metoprolol Tartrate) 25 Mg Tablet, 25 MG PO BID 08/09/12 Lisinopril (Lisinopril) 40 Mg Tablet, 20 MG PO DAILY 08/09/12 Aspirin (Aspirin) 325 Mg Tab, 325 MG PO QDAY 08/09/12 Reviewed Nurses Notes: Yes Old Medical Records Reviewed: Yes Hx Smoking: Yes Smoking Status: Current: Every Day Smoker Hx Substance Use Disorder: No Hx Alcohol Use: No Constitutional Vital Sign - Last 24 Hours 03/21/18 09:31 Temp 99.5 Pulse 78 Resp 20 B/P (MAP) 93/61 Pulse Ox 97 O2 Delivery Room Air Physical Exam General appearance: Alert no distress. Respiratory: Chest is non tender, lungs are clear to auscultation. Cardiac: Regular rate and rhythm [ ] Left hand examination shows redness and swelling to the 1st and 2nd metacarpal there is pain with extension and flexion of the 1st and 2nd digit no pain with the thenar eminence no pain with supination or pronation of the thumb there is pain however with extension and flexion of the wrist neurovascularly intact otherwise unremarkable DIFFERENTIAL DIAGNOSIS: After history and physical exam differential diagnosis was considered for gout versus cellulitis versus arthritis Medical Decision Making Data Points Result Diagram: 03/21/18 09 Laboratory Hematology Test 03/21/18 09:25 03/21/18 10:09 Red Blood Count 4.83 M/uL (4.00-5.60) Mean Corpuscular Volume 89.3 fL (80.0-96.0) Mean Corpuscular Hemoglobin 30.2 pg (26.0-33.0) Mean Corpuscular Hemoglobin Concent 33.8 g/dL (32.0-36.0) Red Cell Distribution Width 17.1 % (11.5-14.5) Mean Platelet Volume 8.2 fL (7.2-11.1) Neutrophils (%) (Auto) 79.6 % (39.4-72.5) Lymphocytes (%) (Auto) 11.6 % (17.6-49.6) Monocytes (%) (Auto) 7.4 % (4.1-12.4) Eosinophils (%) (Auto) 0.5 % (0.4-6.7) Basophils (%) (Auto) 0.9 % (0.3-1.4) Nucleated RBC Relative Count (auto) 0.0 /100WBC Neutrophils # (Auto) 10.1 K/uL (2.0-7.4) Lymphocytes # (Auto) 1.5 K/uL (1.3-3.6) Monocytes # (Auto) 0.9 K/uL (0.3-1.0) Eosinophils # (Auto) 0.1 K/uL (0.0-0.5) Basophils # (Auto) 0.1 K/uL (0.0-0.1) Nucleated RBC Absolute Count (auto) 0.01 K/uL Erythrocyte Sedimentation Rate 90 mm/HOUR (0-20) Uric Acid 4.4 mg/dl (3.5-8.5) C-Reactive Protein 5.9 mg/dl (<1.0) Chemistry Test 03/21/18 09:25 03/21/18 10:09 White Blood Count 12.6 k/uL (4.5-11.0) Red Blood Count 4.83 M/uL (4.00-5.60) Hemoglobin 14.6 g/dL (14.0-18.0) Hematocrit 43.2 % (42.0-52.0) Mean Corpuscular Volume 89.3 fL (80.0-96.0) Mean Corpuscular Hemoglobin 30.2 pg (26.0-33.0) Mean Corpuscular Hemoglobin Concent 33.8 g/dL (32.0-36.0) Red Cell Distribution Width 17.1 % (11.5-14.5) Platelet Count 246 K/uL (150-450) Mean Platelet Volume 8.2 fL (7.2-11.1) Neutrophils (%) (Auto) 79.6 % (39.4-72.5) Lymphocytes (%) (Auto) 11.6 % (17.6-49.6) Monocytes (%) (Auto) 7.4 % (4.1-12.4) Eosinophils (%) (Auto) 0.5 % (0.4-6.7) Basophils (%) (Auto) 0.9 % (0.3-1.4) Nucleated RBC Relative Count (auto) 0.0 /100WBC Neutrophils # (Auto) 10.1 K/uL (2.0-7.4) Lymphocytes # (Auto) 1.5 K/uL (1.3-3.6) Monocytes # (Auto) 0.9 K/uL (0.3-1.0) Eosinophils # (Auto) 0.1 K/uL (0.0-0.5) Basophils # (Auto) 0.1 K/uL (0.0-0.1) Nucleated RBC Absolute Count (auto) 0.01 K/uL Erythrocyte Sedimentation Rate 90 mm/HOUR (0-20) Uric Acid 4.4 mg/dl (3.5-8.5) C-Reactive Protein 5.9 mg/dl (<1.0) ED Course/Re-evaluation ED Course clinical course medical decision decision making 62-year-old male comes emergency room with redness and swelling of his left hand x-ray shows no fractures dislocation or subluxation subluxation but does show some swelling in the area consistent with a probable cellulitis way, is elevated CRP is elevated with a normal uric acid will treated as a cellulitis put him in a wrist splint and start him on antibiotics due to his chronic conditions of his back and his legs this will not be addressed this time these are chronic in nature Decision to Disposition Date: Mar 21, 2018 Decision to Disposition Time: 10:47 Depart Departure Latest Vital Signs Vital Signs Date Time Temp Pulse Resp B/P (MAP) Pulse Ox O2 Delivery O2 Flow Rate FiO2 03/21/18 09:31 99.5 78 20 93/61 97 Room Air Impression: Primary Impression: Cellulitis of hand Condition: Improved Disposition: HOME OR SELF-CARE Referrals: LATISHA RUSSO MD 5 Days New Scripts Sulfamethoxazole/Trimet 800-160 Mg Tab (BACTRIM DS TABLET) 1 Each Tablet 1 TAB PO Q12H, #14 MG 0 Refills TAKE ONE TABLET BY MOUTH EVERY TWELVE HOURS Prov: KARL JAY MD 03/21/18 Patient Instructions: Cellulitis (DC) KARL JAY MD Mar 21, 2018 09:40
[2018-03-21 09:49] LABS: PLATELET COUNT, AUTOMATED 246 K/uL (150-450)
--- NOTE | 2018-03-21 10:26 | RADIOLOGY IMAGING REPORT ---
FACILITY: [facility] - [place] PATIENT NAME: Flcao Andrews : 1955 MR: [id number] V: [id number] EXAM DATE: ORDERING PHYSICIAN: KARL JAY TECHNOLOGIST: Location: [facility] - [place] Patient: Flaco Andrews : 1955 Visit/Account:[id number] Date of Sevice: 03/21/2018 HAND LIMITED LEFT HISTORY: Pain and swelling. Injured left second metacarpal head ADDITIONAL HISTORY: None. COMPARISON: None. FINDINGS: 3 views were obtained of the left hand. There is soft tissue swelling over the dorsal surface of the metacarpals. No radiopaque foreign body is identified. There is no evidence of acute fracture or s ubluxation. There is narrowing of the second MCP joint. Subchondral cyst formation is present as well as small o steophytes. Query early erosive changes in the second metacarpal head, correlate with any history of inflammatory arthritis. Degenerative changes are present in the IP joint of the thumb and DIP joints of the second and third digits. Moderate to severe joint space narrowing and subchondral cyst formation present at the first carpometacarpal joint as well as the scaphoid multangular articulation. Minimal osteophyte formatio n is present. Query early erosive changes. Radiocarpal joint is normal. There is mild widening of the scapholunate lunate interval which may be indicative of trauma, this could be remote. IMPRESSION: 1. Soft tissue swelling without evidence of acute osseous abnormality. 2. Degenerative changes at multiple sites as described above. Query early erosive changes specifica lly in the second metacarpal head and base of the first metacarpal and carpal metacarpal joint which could be indicative of a superimposed inflammatory arthritis, clinically correlate. Report Dictated By: Mare Santana MD at 03/21/2018 10:18 AM Report E-Signed By: Mare Santana MD at 03/21/2018 10:22 AM WSN:[email or web address]
[2018-03-21] MEDS ORDERED: SULF-198 PO (10:47)
[2018-03-21 11:00] VITALS: BP 102/63
== END 2018-03-21 11:03 | disposition home or self-care (01) ==
LOC: ER 09:34
DX: L03.114 Cellulitis of left upper limb (principal)
CPT/HCPCS: 36415; 73120; 84550; 85025; 85651; 86140; 99283; L3908

== ENCOUNTER → 2018-03-21 | Outpatient (CLI) | payer OTHER ==
[2018-02-14 10:20] VITALS: BMI 20.8
[~2018-03-21] MED LIST changes: +INDO-23 PO; -INDO50CA92 PO; +SULF-198 PO
== END ==
LOC: AMB 09:07
PROVIDERS: ATTEND Nurse Practitioner
DX: M79.662 Pain in left lower leg (principal); R53.1 Weakness
CPT/HCPCS: A0425; A0427

== ENCOUNTER 2018-04-10 12:53 | Inpatient (IN) | payer OTHER ==
[2018-02-14 10:20] VITALS: Wt 57.0 kg
[~2018-04-10 12:53] MED LIST changes: -COLC0.6C3 PO; -METH4TAB66 PO
--- NOTE | 2018-04-10 12:56 | ER Report ---
History and Physical Time Seen By MD: 12:56 HPI/ROS CHIEF COMPLAINT: Left wrist, left shoulder and right knee pain HISTORY OF PRESENT ILLNESS: This is a 62-year-old male presents to the emergency Department PMS for left wrist, left shoulder and right knee pain. Patient states that this past Monday he developed some discomfort in his left hand progressively getting worse and I Omari left shoulder pain and right knee pain. There is erythema and swelling to the left hand and wrist. Patient also has significant discomfort and decreased mobility to the right knee with swelling. Patient at this time is unable to ambulate at home, unable to manage his own care. Patient denies fevers or chills at home. No chest pain or shortness of breath. No nausea or vomiting. No dysuria or diarrhea. REVIEW OF SYSTEMS: Constitutional: No fever, no chills. Eyes: No discharge. ENT: No sore throat. Cardiovascular: No chest pain, no palpitations. Respiratory: No cough, no shortness of breath. Gastrointestinal: No abdominal pain, no vomiting. Genitourinary: No hematuria. Musculoskeletal: As above. Skin: Above. Neurological: No headache. Allergies: Coded Allergies: No Known Drug Allergies (Unverified , 04/10/18) Home Meds Active Scripts Hydrocodone Bit/Acetaminophen (HYDROCODON-ACETAMINOPHEN 5-325) 1 Each Tablet, 1 EACH PO Q4H Y for PAIN, #20 TAB Prov:BOB DUGAN DO 02/16/18 Reported Medications Atorvastatin Calcium (LIPITOR) 40 Mg Tablet, 1 TAB PO HS, TAB 02/13/18 Allopurinol (ZYLOPRIM) 300 Mg Tablet, 100 MG PO QDAY, TAB 02/13/18 Metoprolol Tartrate (Metoprolol Tartrate) 25 Mg Tablet, 25 MG PO BID 08/09/12 Lisinopril (Lisinopril) 40 Mg Tablet, 20 MG PO DAILY 08/09/12 Aspirin (Aspirin) 325 Mg Tab, 325 MG PO QDAY 08/09/12 Discontinued Scripts Sulfamethoxazole/Trimet 800-160 Mg Tab (BACTRIM DS TABLET) 1 Each Tablet, 1 TAB PO Q12H, #14 MG 0 Refills TAKE ONE TABLET BY MOUTH EVERY TWELVE HOURS Prov:KARL JAY MD 03/21/18 Methylprednisolone (METHYLPREDNISOLONE) 4 Mg Tablet, 4 MG PO DIRECTED, #10 TAB Take 1 tab QID x 1 day, then 1 tab TID x 1 day, then 1 tab BID x 1 day, then 1 tab QD x 1 day Prov:BOB DUGAN DO 02/16/18 Past Medical/Surgical History The patient has a past medical and surgical history of heart attack, hypertension, hypercholesterolemia, COPD, does not wear oxygen uses a nebulizer occasionally, umbilical hernia, gout, arthritis, back pain, wear glasses, coronary artery stent, hernia surgery, elbow surgery. Reviewed Nurses Notes: Yes Hx Smoking: Yes Smoking Status: Current: Every Day Smoker Hx Substance Use Disorder: No Hx Alcohol Use: No Constitutional Vital Sign - Last 24 Hours 04/10/18 04/10/18 04/10/18 04/10/18 12:54 13:00 13:04 13:15 Temp 98.9 Pulse 106 ??? 94 Resp 20 B/P (MAP) 102/84 102/89 (93) Pulse Ox 99 98 99 O2 Delivery Nasal Cannula O2 Flow Rate 2.0 04/10/18 04/10/18 04/10/18 04/10/18 13:30 13:45 14:00 14:15 Pulse 96 86 90 94 B/P (MAP) 108/70 (83) 121/80 (94) Pulse Ox 100 99 99 98 04/10/18 04/10/18 04/10/18 04/10/18 14:30 14:45 15:00 15:15 Pulse 100 101 102 103 B/P (MAP) 120/83 (95) 105/82 (90) Pulse Ox 99 98 98 98 04/10/18 15:30 Pulse 104 B/P (MAP) 105/69 (81) Pulse Ox 99 Intake and Output 04/10/18 04/10/18 04/11/18 15:00 23:00 07:00 Intake Total 1000 ml Balance 1000 ml Physical Exam General Appearance: The patient is alert, has no immediate need for airway protection and no signs of toxicity. Eyes: Pupils equal and round no pallor or injection. ENT, Mouth: Mucous membranes are dry. Respiratory: There are no retractions, lungs are clear to auscultation. Cardiovascular: Regular rate and rhythm. Gastrointestinal: Abdomen is soft and non tender, no masses, bowel sounds normal. Neurological: Alert and oriented 4. Moving all extremities. Following all commands. No focal neuro deficits. Skin: Warm and dry, no rashes. Musculoskeletal: Erythema, swelling and decreased movement of the left hand and wrist, hot to touch. No obvious deformities of the wrist. No contusion. No crepitus. Gen. pain to the left shoulder, no crepitus or obvious deformities. Right knee is swollen, hot to touch significant discomfort with light palpation. Extremities are nontender, nonswollen and have full range of motion. [ ] DIFFERENTIAL DIAGNOSIS: After history and physical exam differential diagnosis was considered for gout, septic arthritis, osteoarthritis, knee effusion. Medical Decision Making Data Points Result Diagram: 04/10/18 1306 04/10/18 1306 Laboratory Hematology Test 04/10/18 13:06 04/10/18 14:15 Red Blood Count 4.37 M/uL (4.00-5.60) Mean Corpuscular Volume 89.2 fL (80.0-96.0) Mean Corpuscular Hemoglobin 29.5 pg (26.0-33.0) Mean Corpuscular Hemoglobin Concent 33.0 g/dL (32.0-36.0) Red Cell Distribution Width 18.7 % (11.5-14.5) Mean Platelet Volume 7.5 fL (7.2-11.1) Neutrophils (%) (Auto) 85.7 % (39.4-72.5) Lymphocytes (%) (Auto) 6.3 % (17.6-49.6) Monocytes (%) (Auto) 7.5 % (4.1-12.4) Eosinophils (%) (Auto) 0.1 % (0.4-6.7) Basophils (%) (Auto) 0.4 % (0.3-1.4) Nucleated RBC Relative Count (auto) 0.0 /100WBC Neutrophils # (Auto) 13.3 K/uL (2.0-7.4) Lymphocytes # (Auto) 1.0 K/uL (1.3-3.6) Monocytes # (Auto) 1.2 K/uL (0.3-1.0) Eosinophils # (Auto) 0.0 K/uL (0.0-0.5) Basophils # (Auto) 0.1 K/uL (0.0-0.1) Nucleated RBC Absolute Count (auto) 0.01 K/uL Peripheral Blood Smear Y/N Erythrocyte Sedimentation Rate 73 mm/HOUR (0-20) Sodium Level 130 mmol/L (137-145) Potassium Level 4.1 mmol/L (3.5-5.0) Chloride Level 93 mmol/L (98-107) Carbon Dioxide Level 26 mmol/L (22-30) Blood Urea Nitrogen 14 mg/dl (9-21) Creatinine 0.90 mg/dl (0.66-1.25) Glomerular Filtration Rate Calc > 60.0 Random Glucose 140 mg/dl (75-110) Calcium Level 9.2 mg/dl (8.4-10.2) Total Bilirubin 2.2 mg/dl (0.2-1.3) Aspartate Amino Transf (AST/SGOT) 17 U/L (0-35) Alanine Aminotransferase (ALT/SGPT) 16 U/L (0-56) Alkaline Phosphatase 71 U/L (0-126) C-Reactive Protein 25.5 mg/dl (<1.0) Total Protein 7.3 g/dl (6.3-8.2) Albumin 4.0 g/dl (3.5-5.0) Body Fluid Type synovial Body Fluid pH 6.0 pH Body Fluid WBC 74217 Body Fluid RBC 01079 Body Fluid Neutrophils 96 % Body Fluid Lymphocytes 1 % Body Fluid Monocytes 3 % Body Fluid Crystals Present Body Fluid Glucose 80 mg/dl Body Fluid Total Protein 3.3 G/dl Pleural Fluid LDH 773 U/L Chemistry Test 04/10/18 13:06 04/10/18 14:15 White Blood Count 15.5 k/uL (4.5-11.0) Red Blood Count 4.37 M/uL (4.00-5.60) Hemoglobin 12.9 g/dL (14.0-18.0) Hematocrit 39.0 % (42.0-52.0) Mean Corpuscular Volume 89.2 fL (80.0-96.0) Mean Corpuscular Hemoglobin 29.5 pg (26.0-33.0) Mean Corpuscular Hemoglobin Concent 33.0 g/dL (32.0-36.0) Red Cell Distribution Width 18.7 % (11.5-14.5) Platelet Count 327 K/uL (150-450) Mean Platelet Volume 7.5 fL (7.2-11.1) Neutrophils (%) (Auto) 85.7 % (39.4-72.5) Lymphocytes (%) (Auto) 6.3 % (17.6-49.6) Monocytes (%) (Auto) 7.5 % (4.1-12.4) Eosinophils (%) (Auto) 0.1 % (0.4-6.7) Basophils (%) (Auto) 0.4 % (0.3-1.4) Nucleated RBC Relative Count (auto) 0.0 /100WBC Neutrophils # (Auto) 13.3 K/uL (2.0-7.4) Lymphocytes # (Auto) 1.0 K/uL (1.3-3.6) Monocytes # (Auto) 1.2 K/uL (0.3-1.0) Eosinophils # (Auto) 0.0 K/uL (0.0-0.5) Basophils # (Auto) 0.1 K/uL (0.0-0.1) Nucleated RBC Absolute Count (auto) 0.01 K/uL Peripheral Blood Smear Y/N Erythrocyte Sedimentation Rate 73 mm/HOUR (0-20) Glomerular Filtration Rate Calc > 60.0 Calcium Level 9.2 mg/dl (8.4-10.2) Total Bilirubin 2.2 mg/dl (0.2-1.3) Aspartate Amino Transf (AST/SGOT) 17 U/L (0-35) Alanine Aminotransferase (ALT/SGPT) 16 U/L (0-56) Alkaline Phosphatase 71 U/L (0-126) C-Reactive Protein 25.5 mg/dl (<1.0) Total Protein 7.3 g/dl (6.3-8.2) Albumin 4.0 g/dl (3.5-5.0) Body Fluid Type synovial Body Fluid pH 6.0 pH Body Fluid WBC 87435 Body Fluid RBC 73203 Body Fluid Neutrophils 96 % Body Fluid Lymphocytes 1 % Body Fluid Monocytes 3 % Body Fluid Crystals Present Body Fluid Glucose 80 mg/dl Body Fluid Total Protein 3.3 G/dl Pleural Fluid LDH 773 U/L Microbiology Microbiology Date/Time Source Procedure Growth Status 04/10/18 14:15 Knee Fluid Right Gram Stain - Final Resulted 04/10/18 14:15 Knee Fluid Right Body Fluid Culture Pending Resulted EKG/Imaging [place] [facility] [place]: Flaco Andrews : 1955 Visit/Account:[id number] Date of Sevice: 04/10/2018 HAND COMPLETE LEFT HISTORY: left hand pain, swelling and erythema COMPARISON: None FINDINGS: AP lateral and oblique views of the left hand demonstrates the presence of degenerative arthropathy at the first metacarpal carpal joint. There is mild degenerative arthropathy at the distal interphalangeal joints. These findings are characteristic of osteoarthritis. There is no evidence of acute fracture. There is no evidence of dislocation. The visualized soft tissues are unremarkable. There is no evidence of lytic or blastic bony lesion. IMPRESSION: Degenerative arthropathy most consistent with osteoarthritis. Report Dictated By: Adam Pena at 04/10/2018 1:46 PM Report E-Signed By: Adam Pena at 04/10/2018 1:51 PM WSN:[facility] [place] [facility] [place] Patient: Flaco Andrews : 1955 Visit/Account:[id number] Date of Sevice: 04/10/2018 Study: KNEE 3 VIEW RIGHT Indication: Soft tissue swelling Comparison study: 02/13/2018 Findings: AP lateral and oblique views of the right knee demonstrates presence of a large suprapatellar effusion. There is no evidence of acute fracture or dislocation. There is no evidence of lytic or blastic lesion. There is no significant joint space narrowing. IMPRESSION: No acute bony abnormality identified. There is a large suprapatellar effusion present. Report Dictated By: Adam Pena at 04/10/2018 1:45 PM Report E-Signed By: Adam Pena at 04/10/2018 1:46 PM WSN:[facility] ED Course/Re-evaluation Clinical Indication for ER IV: Hydration, IV Access ED Course The patient was admitted to room via EMS. A history of physical obtained. Differential diagnoses were considered. An IV was started. A CBC, CMP, ESR, CRP were obtained. Lab studies showing to be rbc's 15.5 with a left shift.ESR 73, CRP 25.5. X-ray of the left hand showing no acute osseous abnormalities arthritic changes only, the left knee showing no acute osseous abnormalities there is a large effusion. I did discuss this with the patient, we also arthrocentesis of the right knee, he is in agreement with this as noted below. The patient was given a 1 L normal saline bolus, 4 mg IV Zofran, 4 mg IV morphine, continued to have discomfort was given 50 g IV fentanyl. Patient said that the pain has improved however still uncomfortable and given another 50 g IV fentanyl prior to his admission. I did discuss the case with Dr. Young the hospitalist manager front office, given the patient has elevated white count, CRP and ESR. left wrist pain with erythema and right knee pain with swelling, heat and pain, inability to manage his care at home he has agreed to admit to the hospitalist services. 04/10/2018 2:17:26 pm Procedure: Arthrocentesis. After verbal informed consent from patient explaining the risks including infection and bleeding a arthrocentesis was performed on the right knee. The arthrocentesis was performed after the patient was prepped and draped in the usual fashion. The joint was anesthetized with 1% lidocaine. Approximately 20 mL of blood-tinged fluid was obtained. There were no complications. The procedure was performed by myself and Dr. Suresh. 04/10/2018 3:20:22 pm I did speak with Dr. Young the hospitalist on- call, he has accepted the patient into his services for left wrist pain and swelling with erythema, right knee pain and swelling. Decision to Disposition Date: Apr 10, 2018 Decision to Disposition Time: 15:18 Depart Departure Latest Vital Signs Vital Signs Date Time Temp Pulse Resp B/P (MAP) Pulse Ox O2 Delivery O2 Flow Rate FiO2 04/10/18 15:30 104 105/69 (81) 99 04/10/18 13:04 2.0 04/10/18 12:54 98.9 20 Nasal Cannula Impression: Primary Impression: Pain and swelling of right knee Additional Impression: Pain and swelling of left wrist Condition: Improved Disposition: Admitted from ER Problem Qualifiers JOSEFINA BAEZ CLERK GENERAL-BC Apr 10, 2018 12:56
[2018-04-10] MEDS ORDERED: NS(*) 0.9% 1000 ML BAG 1,000 ML IV ONE ×2 (13:15→19:35)
[2018-04-10] MEDS ORDERED: MORPHINE 4 MG/ML SDV IVP ONE (13:15)
[2018-04-10] MEDS ORDERED: ONDANSETRON 4 MG/2 ML VIAL IVP ONE (13:15)
[2018-04-10 13:27] LABS: PLATELET COUNT, AUTOMATED 327 K/uL (150-450)
--- NOTE | 2018-04-10 13:50 | RADIOLOGY IMAGING REPORT ---
FACILITY: [facility] - [place] PATIENT NAME: Flaco Andrews : 1955 MR: [id number] V: [id number] EXAM DATE: ORDERING PHYSICIAN: JOSEFINA BAEZ TECHNOLOGIST: Location: [facility] [place] Patient: Flaco Andrews : 1955 Visit/Account:[id number] Date of Sevice: 04/10/2018 Study: KNEE 3 VIEW RIGHT Indication: Soft tissue swelling Comparison study: 02/13/2018 Findings: AP lateral and oblique views of the right knee demonstrates presence of a large suprapatell ar effusion. There is no evidence of acute fracture or dislocation. There is no evidence of lytic o r blastic lesion. There is no significant joint space narrowing. IMPRESSION: No acute bony abnormality identified. There is a large suprapatellar effusion present. Report Dictated By: Adam Pena at 04/10/2018 1:45 PM Report E-Signed By: Adam Pena at 04/10/2018 1:46 PM WSN:[email or web address]
--- NOTE | 2018-04-10 13:54 | RADIOLOGY IMAGING REPORT ---
FACILITY: [facility] - [place] PATIENT NAME: Flaco Andrews : 1955 MR: [id number] V: [id number] EXAM DATE: ORDERING PHYSICIAN: JOSEFINA BAEZ TECHNOLOGIST: Location: [facility] Patient: Flaco Andrews : 1955 Visit/Account:[id number] Date of Sevice: 04/10/2018 HAND COMPLETE LEFT HISTORY: left hand pain, swelling and erythema COMPARISON: None FINDINGS: AP lateral and oblique views of the left hand demonstrates the presence of degenerative art hropathy at the first metacarpal carpal joint. There is mild degenerative arthropathy at the distal interphalangeal joints. These findings are characteristic of osteoarthritis. There is no evidence o f acute fracture. There is no evidence of dislocation. The visualized soft tissues are unremarkable . There is no evidence of lytic or blastic bony lesion. IMPRESSION: Degenerative arthropathy most consistent with osteoarthritis. Report Dictated By: Adam Pena at 04/10/2018 1:46 PM Report E-Signed By: Adam Pena at 04/10/2018 1:51 PM WSN:[email or web address]
[2018-04-10] MEDS ORDERED: fentaNYL CITR 100 MCG/2 ML AMP IVP ONE ×2 (14:20→15:30)
[2018-04-10 16:16] VITALS: BP 102/86
[2018-04-10] MEDS: methylPREDNIS SUCC 125 MG/2ML IVP SCH ×2 (17:09→20:36)
[2018-04-10] MEDS: HYDROmorphone HCL 2 MG/ML SDV IVP PRN ×2 (17:10→21:18)
[2018-04-10 19:09] VITALS: BP 81/54
[2018-04-10 19:15] VITALS: BP 91/57
[2018-04-10] MEDS ORDERED: ALLOPURINOL 300 MG TAB PO SCH (19:15)
--- NOTE | 2018-04-10 19:45 | History & Physical ---
History of Present Illness History of Present Illness 62M presenting with left wrist, right foot and right knee pain. Monday he developed some discomfort in his left hand progressively getting worse began to have R foot and knee pain. Erythema and swelling to the left hand and wrist. Decreased mobility 2/2 right knee with swelling. Patient at this time is unable to ambulate at home, unable to manage his own care. Patient denies fevers or chills or n/v. Admitted 02.13.18 for similar complaint related to only knee. Improved with steroid at that time and was started on Allopurinol as well. Dose of Allopurinol appears to be same dose as d/c. History Problems: (1) Knee pain, acute Status: Acute (2) Myocardial infarction (3) Gout (4) Essential hypertension Home Meds Active Scripts Hydrocodone Bit/Acetaminophen (HYDROCODON-ACETAMINOPHEN 5-325) 1 Each Tablet, 1 EACH PO Q4H Y for PAIN, #20 TAB Prov:BOB DUGAN DO 02/16/18 Reported Medications Atorvastatin Calcium (LIPITOR) 40 Mg Tablet, 1 TAB PO HS, TAB 02/13/18 Allopurinol (ZYLOPRIM) 300 Mg Tablet, 100 MG PO QDAY, TAB 02/13/18 Metoprolol Tartrate (Metoprolol Tartrate) 25 Mg Tablet, 25 MG PO BID 08/09/12 Lisinopril (Lisinopril) 40 Mg Tablet, 20 MG PO DAILY 08/09/12 Aspirin (Aspirin) 325 Mg Tab, 325 MG PO QDAY 08/09/12 Discontinued Scripts Sulfamethoxazole/Trimet 800-160 Mg Tab (BACTRIM DS TABLET) 1 Each Tablet, 1 TAB PO Q12H, #14 MG 0 Refills TAKE ONE TABLET BY MOUTH EVERY TWELVE HOURS Prov:KARL JAY MD 03/21/18 Methylprednisolone (METHYLPREDNISOLONE) 4 Mg Tablet, 4 MG PO DIRECTED, #10 TAB Take 1 tab QID x 1 day, then 1 tab TID x 1 day, then 1 tab BID x 1 day, then 1 tab QD x 1 day Prov:BOB DUGAN DO 02/16/18 Allergies: Coded Allergies: No Known Drug Allergies (Unverified , 04/10/18) Patient History: FH: CAD (coronary artery disease) Hx Smoking: Yes Smoking Status: Current: Every Day Smoker Exposure to Second Hand Smoke?: No Caffeine Intake: Coffee Caffeine/Cups Per Day: 1 Hx Alcohol Use: Yes Alcohol Used: Beer Hx Substance Use Disorder: Yes Social Drug Use: Former Social Drugs: Marijuana Review of Systems Constitutional: No Fever, No Weight Loss, No Weight Gain Neurological: No Syncope, No Confusion, No Weakness, No Dizziness Eyes: No Vision Change, No Loss of Vision ENT: No Hearing Loss Cardiovascular: No Chest Pain Respiratory: No Shortness of Breath, No Cough Gastrointestinal: No Nausea, No Vomiting, No Diarrhea Genitourinary: No Dysuria Musculoskeletal: Pain Psychiatric: No Depression, No Anxiety Exam Vital Signs Vital Signs Date Time Temp Pulse Resp B/P (MAP) Pulse Ox O2 Delivery O2 Flow Rate FiO2 04/10/18 16:26 97 Room Air 04/10/18 16:16 99.2 105 16 102/86 (91) 04/10/18 13:04 2.0 General Appearance: Alert, Awake, Afebrile Neuro: No Gross deficits Eyes: PERRLA ENT: Normal Neck: No Masses Cardiovascular: Normal Rhythm & Peripheral Pulses Respiratory: No Respiratory Distress Chest: No Masses GI: Abd Soft and Non-Tender Lymph: Cervical Nodes Benign Musculoskeletal: Other (+ pain as noted in HPI) Extremities: Warm (L hand erythema of wrist, R knee and R foot) Integumentary: Skin Intact without Lesion / Mass Psych: Alert & Oriented X3 Medical Decision Making Data Points Result Diagram: 04/10/18 1306 04/10/18 1306 Assessment and Plan Problems: (1) Gout Assessment & Plan: Joint aspirate consistent with gout flare (+urate crystals) , ESR and CRP elevations would fit gout flare as well. Will get uric acid level but may be reduced in acute attack, previously has been in normal range but always acute. Will need alternative PPx on dc either increased dose allopurinol or dual therapy and should have colchicine to prevent flare as well. Begin methylprednisolone 20mg BID for flare, avoid NSAID given CAD. Plan to change to allopurinol and colchicine once flare reduced. Pain control with Dilaudid and Lortab given CAD. (2) CAD (coronary artery disease) Assessment & Plan: Continue home atrovastatin, ASA 325mg, (3) Nicotine abuse Assessment & Plan: Tax Adjuster cessation. Venous Thromboembolism Antithrombotics Is Pt On Any Antithrombotics?: No Exam Sepsis Risk: Sepsis Risk VERONICA MYERS DO Apr 10, 2018 19:45
[2018-04-10] MEDS ORDERED: INFLUENZA VIRUS VAC 0.5 ML SYR IM ONLY ONE (20:00)
[2018-04-10] MEDS ORDERED: FLUSH 10 ML SYR IVP PRN (20:00)
[2018-04-10] MEDS ORDERED: ONDANSETRON 4 MG/2 ML VIAL IVP PRN (20:00)
[2018-04-10] MEDS: APAP/HYDROCODONE 325/5 TAB PO PRN (20:36)
[2018-04-10] MEDS: ATORVASTATIN 40 MG TAB PO SCH (20:36)
[2018-04-10] MEDS ORDERED: METOPROLOL TART 50 MG TAB PO SCH (21:00)
[2018-04-11 02:58] VITALS: BP 86/56
[2018-04-11] MEDS: HYDROmorphone HCL 2 MG/ML SDV IVP PRN (04:44)
[2018-04-11] MEDS: APAP/HYDROCODONE 325/5 TAB PO PRN ×5 (04:44→21:50)
[2018-04-11 05:59] LABS: PLATELET COUNT, AUTOMATED 284 K/uL (150-450)
[2018-04-11 07:32] VITALS: BP 94/65
[2018-04-11] MEDS ORDERED: NS(*) 0.9% 1000 ML BAG 1,000 ML IV PRN ×2 (08:45→17:12)
[2018-04-11] MEDS ORDERED: HYDROmorphone HCL 2 MG/ML SDV IVP PRN (08:50)
[2018-04-11] MEDS ORDERED: LISINOPRIL 20 MG TAB PO SCH (09:00)
[2018-04-11] MEDS ORDERED: ENOXAPARIN 30 MG/0.3 ML SYR SC SCH (09:00)
[2018-04-11] MEDS: ASPIRIN 325 MG TAB PO SCH (09:18)
[2018-04-11] MEDS: methylPREDNIS SUCC 125 MG/2ML IVP SCH ×2 (09:19→20:57)
--- NOTE | 2018-04-11 10:46 | Hospitalist Progress Note ---
Subjective Progress Notes Subjective He reports feeling much improved. Less pain. Physical Exam Vital Signs Date Time Temp Pulse Resp B/P (MAP) Pulse Ox O2 Delivery O2 Flow Rate FiO2 04/11/18 07:34 97 Nasal Cannula 1.0 04/11/18 07:32 100 18 94/65 (75) 04/11/18 02:58 98.3 Intake and Output 04/12/18 07:00 Intake Total 240 ml Balance 240 ml Intake Oral 240 ml General Appearance: Alert, Awake Cardiovascular: Regular Rate and Rhythm Respiratory: Clear to Auscultation Musculoskeletal: Other (Left wrist, right knee, right foot with small-moderate effusions as well as some callor/erythema - he reports improvements) Result Diagram: 04/11/18 0509 04/11/18 0509 Assessment and Plan Problems: (1) Gout Assessment & Plan: Joint aspirate consistent with gout flare (+urate crystals) , ESR and CRP elevations would fit gout flare as well. Uric acid level is in normal range (but checks always while acute). Will need allopurinol at discharge. He may need second agent as well (probenecid/colchicine). Will continue methylprednisolone for flare. Avoid NSAID given CAD. (2) CAD (coronary artery disease) Assessment & Plan: Continue home atrovastatin, ASA 325mg, (3) Nicotine abuse Assessment & Plan: Weaver Hand Loom cessation. (4) Elevated serum creatinine Status: Acute Assessment & Plan: Possibly secondary to lisinopril and NSAIDs. Will continue IV fluids and recheck lab. Watch UOP. Exam Sepsis Risk: Sepsis Risk MARIA ESTHER STOUT MD Apr 11, 2018 10:46
[2018-04-11 10:54] VITALS: BP 107/77
[2018-04-11 15:09] VITALS: BP 109/79
[2018-04-11 19:09] VITALS: BP 107/74
[2018-04-11] MEDS: ATORVASTATIN 40 MG TAB PO SCH (20:57)
[2018-04-11 23:00] VITALS: BP 107/75
[2018-04-12 02:40] VITALS: BP 104/71
[2018-04-12] MEDS: APAP/HYDROCODONE 325/5 TAB PO PRN ×5 (02:47→20:01)
[2018-04-12 06:06] LABS: PLATELET COUNT, AUTOMATED 305 K/uL (150-450)
[2018-04-12 07:23] VITALS: BP 121/82
[2018-04-12] MEDS: ASPIRIN 325 MG TAB PO SCH (10:28)
[2018-04-12] MEDS: predniSONE 20 MG TAB PO SCH (10:29)
[2018-04-12] MEDS: COLCHICINE 0.6 MG TAB PO SCH (10:29)
[2018-04-12 11:03] VITALS: BP 119/75
--- NOTE | 2018-04-12 11:48 | Hospitalist Progress Note ---
Subjective Progress Notes Subjective He reports improvement in the pain/swelling, but still very debilitating. Physical Exam Vital Signs Date Time Temp Pulse Resp B/P (MAP) Pulse Ox O2 Delivery O2 Flow Rate FiO2 04/12/18 11:03 97.9 16 119/75 (90) Room Air 04/12/18 07:24 94 04/12/18 07:23 94 04/11/18 10:54 1.5 Intake and Output 04/13/18 07:00 Intake Total 60 ml Output Total 200 ml Balance -140 ml Intake Oral 60 ml Output Urine Total 200 ml # Voids 1 General Appearance: Alert, Awake, No Acute Distress Extremities: Other (Left hand with minimal swelling and no erythema. Right knee without swelling or erythema.) Result Diagram: 04/12/1851504/12/18515 Assessment and Plan Problems: (1) Gout Assessment & Plan: Joint aspirate consistent with gout flare (+urate crystals) , ESR and CRP elevations would fit gout flare as well. Uric acid level is in normal range. Overall, he is improving, but still limited by pain. He is chronically on allopurinol. Will add daily colchicine. Will stop IV steroid and switch to prednisone. Will ask OT/PT to eval. (2) Elevated serum creatinine Status: Acute Assessment & Plan: Possibly secondary to lisinopril and NSAIDs. Improved with hydration and hold medications. Will saline lock and recheck tomorrow. (3) CAD (coronary artery disease) Assessment & Plan: Continue home atrovastatin, ASA 325mg, (4) Nicotine abuse Assessment & Plan: Mason Foreman/Superintendant cessation. Exam Sepsis Risk: No Definite Risk SHERITA SETHI MD Apr 12, 2018 11:48
[2018-04-12 16:33] VITALS: BP 135/87
[2018-04-12] MEDS: ATORVASTATIN 40 MG TAB PO SCH (21:32)
[2018-04-12 22:05] VITALS: BP 144/92
[2018-04-13] MEDS: APAP/HYDROCODONE 325/5 TAB PO PRN ×3 (00:11→08:09)
[2018-04-13 00:18] VITALS: BP 143/93
[2018-04-13 03:39] VITALS: BP 151/96
[2018-04-13 08:05] VITALS: BP 151/107
[2018-04-13 08:55] VITALS: BP 131/82
[2018-04-13] MEDS: COLCHICINE 0.6 MG TAB PO SCH (08:59)
[2018-04-13] MEDS: predniSONE 20 MG TAB PO SCH (08:59)
[2018-04-13] MEDS: ASPIRIN 325 MG TAB PO SCH (08:59)
[2018-04-13] MEDS ORDERED: METH4TAB66 PO (09:13)
[2018-04-13] MEDS ORDERED: LOR5/325 PO (09:13)
[2018-04-13] MEDS ORDERED: COLC0.6C3 PO (09:13)
--- NOTE | 2018-04-13 09:24 | Hospitalist Depart ---
Discharge Summary Reason for Hosp/Final Diag: (1) Gout Hospital Course & Plan: Joint aspirate consistent with gout flare (+urate crystals), ESR and CRP elevations would fit gout flare as well. Uric acid level is in normal range. Overall, he is improving, but still limited by pain. He is chronically on allopurinol. Will add daily colchicine. He will be sent home with Medrol dose pack. He will follow up with PCP next week. (2) Elevated serum creatinine Status: Acute Hospital Course & Plan: Possibly secondary to lisinopril and NSAIDs. Improved with hydration and holding Lisinopril. (3) CAD (coronary artery disease) Hospital Course & Plan: Continue home atrovastatin, ASA 325mg, (4) Nicotine abuse Hospital Course & Plan: Laundry Pricing Clerk cessation. Departure Latest Vital Signs Vital Signs 04/11/18 04/13/18 04/13/18 04/13/18 10:54 03:39 03:45 08:55 Temp 97.7 Pulse 90 Resp 18 B/P (MAP) 131/82 (98) Pulse Ox 95 O2 Delivery Room Air O2 Flow Rate 1.5 Weight (Pounds): 125 Weight (Ounces): 9.0 Result Diagram: 04/12/18 0516 04/13/18 0510 Condition: Improved Discharge: Home, Self Care Discharge Instructions Home Meds Active Scripts Methylprednisolone (METHYLPREDNISOLONE) 4 Mg Tab.ds.pk, 4 MG PO DIRECTED, #1 PACK Prov:RANDAL CELESTE [facility] 04/13/18 Colchicine (Colchicine) 0.6 Mg Capsule, 1 CAP PO DAILY, #30 CAP Prov:RANDAL CELESTE [facility] 04/13/18 Hydrocodone Bit/Acetaminophen (HYDROCODON-ACETAMINOPHEN 5-325) 1 Each Tablet, 1 EACH PO Q4H Y for PAIN, #20 TAB Prov:RANDAL CELESTE [facility] 04/13/18 Reported Medications Atorvastatin Calcium (LIPITOR) 40 Mg Tablet, 1 TAB PO HS, TAB 02/13/18 Allopurinol (ZYLOPRIM) 300 Mg Tablet, 300 MG PO QDAY, TAB 02/13/18 Metoprolol Tartrate (Metoprolol Tartrate) 25 Mg Tablet, 25 MG PO BID 08/09/12 Lisinopril (Lisinopril) 40 Mg Tablet, 20 MG PO DAILY 08/09/12 Aspirin (Aspirin) 325 Mg Tab, 325 MG PO QDAY 08/09/12 Discontinued Scripts Sulfamethoxazole/Trimet 800-160 Mg Tab (BACTRIM DS TABLET) 1 Each Tablet, 1 TAB PO Q12H, #14 MG 0 Refills TAKE ONE TABLET BY MOUTH EVERY TWELVE HOURS Prov:KARL JAY MD 03/21/18 Methylprednisolone (METHYLPREDNISOLONE) 4 Mg Tablet, 4 MG PO DIRECTED, #10 TAB Take 1 tab QID x 1 day, then 1 tab TID x 1 day, then 1 tab BID x 1 day, then 1 tab QD x 1 day Prov:BOB DUGAN DO 02/16/18 Diet: Regular Activity: As Tolerated Copies to: [facility] Venous Thromboembolism Antithrombotics Is Pt On Any Antithrombotics?: No RANDAL CELESTE RESEARCH ASSISTANT PROFESSOR Apr 13, 2018 09:24
== END 2018-04-13 10:05 | disposition home or self-care (01) | DRG 554 ==
LOC: ER 12:56 → OBSVTOIN 15:35 → MED 15:35
PROVIDERS: ADMIT Internal Medicine; ATTEND Internal Medicine
PROC: 0S9C3ZZ Drainage of Right Knee Joint, Percutaneous Approach (ICD-10-PCS; principal; 2018-04-10)
DX: M10.9 Gout, unspecified (principal); I25.10 Atherosclerotic heart disease of native coronary artery without angina pectoris; F17.210 Nicotine dependence, cigarettes, uncomplicated; I10 Essential (primary) hypertension; T46.4X5A Adverse effect of angiotensin-converting-enzyme inhibitors, initial encounter; J44.9 Chronic obstructive pulmonary disease, unspecified; E78.00 Pure hypercholesterolemia, unspecified; R79.89 Other specified abnormal findings of blood chemistry; T39.395A Adverse effect of other nonsteroidal anti-inflammatory drugs [NSAID], initial encounter; Z95.5 Presence of coronary angioplasty implant and graft; I25.2 Old myocardial infarction
CPT/HCPCS: 36415; 82040; 82247; 82310; 82374; 82435; 82565; 82945; 82947; 83735; 83986; 84075; 84132; 84155; 84157; 84295; 84450; 84460; 84520; 84550; 85025; 85651; 86140; 87040; 87071; 87205; 89050; 89060; 96361; 96374; 96375; 96376; 97162; 97165; 99284; J1170; J2270; J2405; J2930; J3010; J7030; J7512

== ENCOUNTER → 2018-04-10 | Outpatient (CLI) | payer OTHER ==
[2018-02-14 10:20] VITALS: BMI 20.8
[~2018-04-10] MED LIST changes: +COLC0.6C3 PO; +METH4TAB66 PO; +SULF-198 PO
== END ==
LOC: AMB 12:35
PROVIDERS: ATTEND Nurse Practitioner
DX: M25.519 Pain in unspecified shoulder (principal); R53.1 Weakness; R09.02 Hypoxemia
CPT/HCPCS: A0425; A0429

== ENCOUNTER 2019-04-01 09:08 | Emergency (ER) | payer MEDICARE ==
[2018-02-14 10:20] VITALS: Wt 57.0 kg
[~2019-04-01 09:08] MED LIST changes: -HYDR-2966 PO; -SILD20TA PO
--- NOTE | 2019-04-01 09:24 | ER Report ---
History and Physical Time Seen By MD: 09:20 Hx. of Stated Complaint: CHEST PAIN HPI/ROS CHIEF COMPLAINT: Chest pain, diaphoresis HISTORY OF PRESENT ILLNESS: Patient is a 63-year-old male here with complaints of chest pain, diaphoresis in the setting of coronary artery disease with drug- eluting stent placement 11 years ago. Patient reports that he woke up with midsternal chest pain with radiation to the left arm which started this morning around 4:00 and has been persistent with associated diaphoresis. Patient was br ought in by EMS who gave the patient aspirin prior to arrival. Patient also reports having dyspnea, pain is worse with exertion. REVIEW OF SYSTEMS: Constitutional: No fever, no chills. Eyes: No discharge. ENT: No sore throat. Cardiovascular: + Midsternal chest pain with radiation to left upper extremity, no palpitations. Respiratory: No cough, no shortness of breath. Gastrointestinal: No abdominal pain, no vomiting. Genitourinary: No hematuria. Musculoskeletal: No back pain. Skin: No rashes. Neurological: No headache. Allergies: Coded Allergies: No Known Drug Allergies (Unverified , 04/01/19) Home Meds Reported Medications Sildenafil Citrate (SILDENAFIL) 20 Mg Tablet, 20 MG PO PRN 04/01/19 Hydrochlorothiazide (HYDROCHLOROTHIAZIDE) 25 Mg Tablet, 1 TAB PO QDAY, TAB 04/01/19 Atorvastatin Calcium (LIPITOR) 40 Mg Tablet, 2 TAB PO HS, TAB 02/13/18 Allopurinol (ZYLOPRIM) 300 Mg Tablet, 300 MG PO QDAY, TAB 02/13/18 Lisinopril (Lisinopril) 40 Mg Tablet, 40 MG PO DAILY 08/09/12 Discontinued Reported Medications Metoprolol Tartrate (Metoprolol Tartrate) 25 Mg Tablet, 25 MG PO BID 08/09/12 Aspirin (Aspirin) 325 Mg Tab, 325 MG PO QDAY 08/09/12 Discontinued Scripts Methylprednisolone (METHYLPREDNISOLONE) 4 Mg Tab.ds.pk, 4 MG PO DIRECTED, #1 PACK Prov:RANDAL CELESTE [facility] 04/13/18 Colchicine (Colchicine) 0.6 Mg Capsule, 1 CAP PO DAILY, #30 CAP Prov:RANDAL CELESTE [employer] 04/13/18 Hydrocodone Bit/Acetaminophen (HYDROCODON-ACETAMINOPHEN 5-325) 1 Each Tablet, 1 EACH PO Q4H PRN for PAIN, #20 TAB Prov:RANDAL CELESTE [employer] 04/13/18 Hx Smoking: Yes Smoking Status: Current: Every Day Smoker Exposure to Second Hand Smoke?: No Hx Substance Use Disorder: No Hx Alcohol Use: Yes Constitutional Vital Sign - Last 24 Hours 04/01/19 04/01/19 04/01/19 04/01/19 09:13 09:15 10:00 10:20 Pulse 116 117 Resp 26 40 B/P (MAP) 101/69 99/83 (88) 103/86 (92) Pulse Ox 92 96 O2 Delivery Nasal Cannula O2 Flow Rate 2.0 04/01/19 04/01/19 04/01/19 04/01/19 10:30 10:35 10:40 10:45 Pulse 118 Resp 9 B/P (MAP) 110/79 (89) 89/63 (72) 93/66 (75) 103/66 (78) Pulse Ox 96 04/01/19 04/01/19 04/01/19 04/01/19 10:50 11:00 11:05 11:10 Pulse ??? 121 111 Resp 23 11 10 B/P (MAP) 100/70 (80) 94/71 (79) 99/68 (78) 110/72 (85) Pulse Ox 95 96 04/01/19 04/01/19 04/01/19 04/01/19 11:15 11:20 11:25 11:30 Pulse 115 117 117 123 Resp 12 13 13 24 B/P (MAP) 100/67 (78) 96/69 (78) 98/70 (79) 105/65 (78) Pulse Ox 96 95 04/01/19 04/01/19 04/01/19 04/01/19 11:35 11:40 11:45 11:50 Pulse 117 122 117 117 Resp 13 11 13 12 B/P (MAP) 100/66 (77) 95/67 (76) 98/68 (78) 100/65 (77) Pulse Ox 96 96 95 95 04/01/19 04/01/19 04/01/19 04/01/19 11:55 12:00 12:05 12:10 Pulse 118 116 116 121 Resp 10 15 15 13 B/P (MAP) 101/66 (78) 98/69 (79) 103/71 (82) 100/69 (79) Pulse Ox 95 94 94 96 04/01/19 04/01/19 04/01/19 04/01/19 12:15 12:20 12:25 12:30 Pulse 113 114 114 111 Resp 16 11 7 11 B/P (MAP) 96/68 (77) 100/66 (77) 94/63 (73) 87/61 (70) Pulse Ox 96 95 94 94 04/01/19 04/01/19 04/01/19 04/01/19 12:35 12:40 12:45 12:50 Pulse 105 114 116 111 Resp 12 18 10 14 B/P (MAP) 97/65 (76) 94/66 (75) 100/63 (75) 93/65 (74) Pulse Ox 93 94 93 94 04/01/19 04/01/19 04/01/19 04/01/19 12:55 13:00 13:05 13:10 Pulse 110 100 111 117 Resp 13 17 35 12 B/P (MAP) 93/64 (74) 93/63 (73) 95/64 (74) 98/73 (81) Pulse Ox 94 94 94 95 Physical Exam General Appearance: The patient is alert, has no immediate need for airway protection and no signs of toxicity. Uncomfortable appearing Eyes: Pupils equal and round no pallor or injection. ENT, Mouth: Mucous membranes are moist. Respiratory: There are no retractions, lungs are clear to auscultation. Cardiovascular: Regular rate and rhythm. Gastrointestinal: Abdomen is soft and non tender, no masses, bowel sounds normal. Neurological: No focal neurological deficits, alert and oriented, cranial nerves intact Skin: Warm and dry, no rashes. Musculoskeletal: Neck is supple non tender. Extremities are nontender, nonswollen and have full range of motion. DIFFERENTIAL DIAGNOSIS: After history and physical exam differential diagnosis was considered for chest pain including but not limited to myocardial ischemia, pericarditis pulmonary embolus, chest wall pain, pleural inflammation and p ulmonary infectious causes. Medical Decision Making Data Points Result Diagram: 04/01/19 0907 04/01/19 0907 Laboratory Hematology Test 04/01/19 09:07 White Blood Count 18.1 k/uL (4.5-11.0) H Red Blood Count 4.13 M/uL (4.00-5.60) Hemoglobin 14.2 g/dL (14.0-18.0) Hematocrit 43.1 % (42.0-52.0) Mean Corpuscular Volume 104.3 fL (80.0-96.0) H Mean Corpuscular Hemoglobin 34.4 pg (26.0-33.0) H Mean Corpuscular Hemoglobin Concent 32.9 g/dL (32.0-36.0) Red Cell Distribution Width 15.8 % (11.5-14.5) H Platelet Count 257 K/uL (150-450) Mean Platelet Volume 8.3 fL (7.2-11.1) Neutrophils (%) (Auto) 89.1 % (39.4-72.5) H Lymphocytes (%) (Auto) 4.3 % (17.6-49.6) L Monocytes (%) (Auto) 6.0 % (4.1-12.4) Eosinophils (%) (Auto) 0.0 % (0.4-6.7) L Basophils (%) (Auto) 0.6 % (0.3-1.4) Nucleated RBC Relative Count (auto) 0.0 /100WBC Neutrophils # (Auto) 16.1 K/uL (2.0-7.4) H Lymphocytes # (Auto) 0.8 K/uL (1.3-3.6) L Monocytes # (Auto) 1.1 K/uL (0.3-1.0) H Eosinophils # (Auto) 0.0 K/uL (0.0-0.5) Basophils # (Auto) 0.1 K/uL (0.0-0.1) Nucleated RBC Absolute Count (auto) 0.01 K/uL Peripheral Blood Smear Y/N Chemistry Test 04/01/19 09:07 04/01/19 12:10 Sodium Level 140 mmol/L (137-145) Potassium Level 3.7 mmol/L (3.5-5.0) Chloride Level 98 mmol/L (98-107) Carbon Dioxide Level 9 mmol/L (22-30) Blood Urea Nitrogen 33 mg/dl (9-21) Creatinine 2.60 mg/dl (0.66-1.25) Glomerular Filtration Rate Calc 25.0 Random Glucose 157 mg/dl (75-110) Calcium Level 9.5 mg/dl (8.4-10.2) Total Bilirubin 1.5 mg/dl (0.2-1.3) Aspartate Amino Transf (AST/SGOT) 52 U/L (0-35) Alanine Aminotransferase (ALT/SGPT) 16 U/L (0-56) Alkaline Phosphatase 57 U/L (0-126) Total Protein 6.7 g/dl (6.3-8.2) Albumin 4.2 g/dl (3.5-5.0) Troponin I 23.500 ng/ml Coagulation Test 04/01/19 09:07 Activated Partial Thromboplast Time 24 seconds (23-35) EKG/Imaging EKG Interpretation PATIENT NAME: FLACO ALCOCER : [id number] MR: [id number] V: [id number] EXAM DATE: ORDERING PHYSICIAN: ZEN NOVAK TECHNOLOGIST: YELITZA Amaral Reason : REPEAT-CP Blood Pressure : / mmHG Vent. Rate : 120 BPM Atrial Rate : 120 BPM P-R Int : 140 ms QRS Dur : 108 ms QT Int : 340 ms P-R-T Axes : 054 088 030 degrees QTc Int : 480 ms Sinus tachycardia RBBB morphology Low voltage QRS Diffuse ST elevation most prominent in lateral leads Abnormal ECG When compared with ECG of 01-APR-2019 09:06, No significant change was found Confirmed by MARIA ESTHER STOUT ([id number]) on 04/01/2019 12:56:17 PM Referred By: SCARLET Confirmed By:MARIA ESTHER STOUT Imaging PATIENT NAME: Flaco Alcocer : 1955 MR: [id number] V: [id number] EXAM DATE: [id number] ORDERING PHYSICIAN: ZEN NOVAK TECHNOLOGIST: Location: [facility] Patient: Flaco Alcocer : 1955 Visit/Account:[id number] Date of Sevice: 04/01/2019 Technique: CHEST PA LAT HISTORY: CP Comparison studies: None FINDINGS: No acute airspace consolidation. There is pulmonary hyperexpansion as well as central peribronchial thickening. Atherosclerotic changes are noted within the thoracic aorta. Cardiac silhouette is unremarkable. IMPRESSION: 1. No acute cardiopulmonary process. 2. Chronic findings as above. ED Course/Re-evaluation ED Course Patient is a 63-year-old male here with complaints of chest pain, diaphoresis started this morning abruptly 4:00. Patient does have a history significant for coronary artery disease with prior stent placement 11 years ago. EKG was concerning for borderline lateral ST elevations with patient having active chest pain. Chest x-ray was unremarkable. Troponin came back at 0.7. Patient had received aspirin prior to arrival. Patient was given morphine, nitroglycerin for analgesia. Patient was started on heparin infusion after bolus. I discussed the patient with Dr. Ríos with cardiology at [facility] who accepted the patient in transfer. Patient had a recurrent EKG which again showed lateral lead borderline elevations. Dr. Ríos discussed the patient with the interventional cardiology team who recommended thrombolytic administration to the patient was given tenecteplase, Plavix. Patient was arranged for air transport to [facility] however there was delayed because of a traffic being suppressed due to [employer] being in the area reportedly because of presedential family being in the vicinity of [facility]. Patient was accepted in transfer at approximately 10:30. Hemodynamic monitoring continued throughout the patient's stay in the emergency department, repeat troponin came back elevated at 23. Patient was stable at time of transport by fixed wing. Decision to Disposition Date: Apr 01, 2019 Decision to Disposition Time: 10:45 Depart Departure Latest Vital Signs Vital Signs Date Time Temp Pulse Resp B/P (MAP) Pulse Ox O2 Delivery O2 Flow Rate FiO2 04/01/19 13:10 117 12 98/73 (81) 95 04/01/19 09:15 2.0 04/01/19 09:13 Nasal Cannula Impression: Primary Impression: Myocardial infarction Condition: Critical Disposition: XFER TO [facility] ([facility]) ZEN NOVAK DO Apr 01, 2019 09:24
[2019-04-01 09:35] LABS: PLATELET COUNT, AUTOMATED 257 K/uL (150-450)
--- NOTE | 2019-04-01 10:08 | EKG ---
FACILITY: [facility] [place] PATIENT NAME: JESSICA ALCOCER : [id number] MR: [id number] V: [id number] EXAM DATE: ORDERING PHYSICIAN: ZEN NOVAK TECHNOLOGIST: YELITZA Amaral Reason : CP Blood Pressure : / mmHG Vent. Rate : 116 BPM Atrial Rate : 116 BPM P-R Int : 148 ms QRS Dur : 110 ms QT Int : 366 ms P-R-T Axes : 063 085 027 degrees QTc Int : 508 ms Sinus tachycardia Low voltage QRS RBBB morphology Diffuse ST elevation most prominent in lateral leads Confirmed by MARIA ESTHER STOUT ([id number]) on 04/01/2019 12:49:04 PM Referred By: SCARLET Confirmed By:MARIA ESTHER STOUT
[2019-04-01] MEDS ORDERED: HEPARIN SOD/D5W 25000/250 ML 250 ML IV ONE ×2 (10:14→10:20)
[2019-04-01] MEDS ORDERED: HEPARIN (PORC) 5000 UN/ML VIAL IVP ONE (10:15)
[2019-04-01] MEDS ORDERED: MORPHINE 10 MG/ML SYR IVP ONE (10:30)
[2019-04-01] MEDS ORDERED: NITROGLYCERIN 0.4 MG SUBL SL ONE (10:30)
[2019-04-01] MEDS ORDERED: MORPHINE 4 MG/ML SDV IVP ONE (10:35)
--- NOTE | 2019-04-01 10:41 | EKG ---
FACILITY: [facility] - [place] PATIENT NAME: JESSICA ALCOCER : [id number] MR: [id number] V: [id number] EXAM DATE: ORDERING PHYSICIAN: ZEN NOVAK TECHNOLOGIST: YELITZA Amaral Reason : REPEAT-CP Blood Pressure : / mmHG Vent. Rate : 120 BPM Atrial Rate : 120 BPM P-R Int : 140 ms QRS Dur : 108 ms QT Int : 340 ms P-R-T Axes : 054 088 030 degrees QTc Int : 480 ms Sinus tachycardia RBBB morphology Low voltage QRS Diffuse ST elevation most prominent in lateral leads Abnormal ECG When compared with ECG of 01-APR-2019 09:06, No significant change was found Confirmed by MARIA ESTHER STOUT ([id number]) on 04/01/2019 12:56:17 PM Referred By: SCARLET Confirmed By:MARIA ESTHER STOUT
[2019-04-01] MEDS ORDERED: SILD20TA PO (10:45)
[2019-04-01] MEDS ORDERED: HYDR-2966 PO (10:45)
--- NOTE | 2019-04-01 10:58 | RADIOLOGY IMAGING REPORT ---
[place] [facility] [place] NAME: Flaco Andrews : 1955 MR: [id number] V: [id number] EXAM DATE: ORDERING PHYSICIAN: ZEN NOVAK TECHNOLOGIST: [facility] Patient: Flaco Andrews : 1955 Visit/Account:[id number] Date of Sevice: 04/01/2019 Technique: CHEST PA LAT HISTORY: CP Comparison studies: None FINDINGS: No acute airspace consolidation. There is pulmonary hyperexpansion as well as central maryam bronchial thickening. Atherosclerotic changes are noted within the thoracic aorta. Cardiac silhouet te is unremarkable. IMPRESSION: 1. No acute cardiopulmonary process. 2. Chronic findings as above. Report Dictated By: Patrick Armenta DO at 04/01/2019 10:49 AM Report E-Signed By: Patrick Armenta DO at 04/01/2019 10:51 AM WSN:[id number]
[2019-04-01] MEDS ORDERED: CLOPIDOGREL BISULFATE 75MG TAB PO ONE (11:05)
[2019-04-01] MEDS: TENECTEPLASE 50 MG KIT IVP ONE ×2 (11:07→11:11)
--- NOTE | 2019-04-01 12:28 | EKG ---
FACILITY: [facility] [place] PATIENT NAME: JESSICA ALCOCER : [id number] MR: [id number] V: [id number] EXAM DATE: ORDERING PHYSICIAN: ZEN NOVAK TECHNOLOGIST: YELITZA Amaral Reason : REPEAT Blood Pressure : / mmHG Vent. Rate : 113 BPM Atrial Rate : 113 BPM P-R Int : 148 ms QRS Dur : 106 ms QT Int : 370 ms P-R-T Axes : 054 084 037 degrees QTc Int : 507 ms Sinus tachycardia Low voltage QRS RBBB morphology Diffuse ST elevation most prominent in lateral leads Abnormal ECG When compared with ECG of 01-APR-2019 10:29, No significant change was found Confirmed by MARIA ESTHER STOUT ([id number]) on 04/01/2019 1:00:09 PM Referred By: SCARLET Confirmed By:MARIA ESTHER STOUT
[2019-04-01 13:10] VITALS: BP 98/73
== END 2019-04-01 13:27 | disposition home or self-care (01) ==
LOC: ER 09:41
DX: I21.9 Acute myocardial infarction, unspecified (principal); I25.10 Atherosclerotic heart disease of native coronary artery without angina pectoris; F17.210 Nicotine dependence, cigarettes, uncomplicated; Z79.899 Other long term (current) drug therapy; Z95.5 Presence of coronary angioplasty implant and graft
CPT/HCPCS: 71046; 84484; 85025; 85730; 93005; 96374; 96375; 99285; A9270; J1644; J2270; J3101; 82040; 82247; 82310; 82374; 82435; 82565; 82947; 84075; 84132; 84155; 84295; 84450; 84460; 84520

== ENCOUNTER → 2019-04-01 | Outpatient (REF) ==
[2018-02-14 10:20] VITALS: BMI 20.8
[~2019-04-01] MED LIST changes: +COLC0.6C3 PO; +HYDR-2966 PO; +METH4TAB66 PO; +SILD20TA PO
== END ==
LOC: AMB 12:29
PROVIDERS: ATTEND Nurse Practitioner
DX: Z02.9 Encounter for administrative examinations, unspecified (principal)

== ENCOUNTER → 2019-04-01 | Outpatient (CLI) | payer MEDICARE ==
[2018-02-14 10:20] VITALS: BMI 20.8
== END ==
LOC: AMB 08:54
PROVIDERS: ATTEND Nurse Practitioner
DX: R07.9 Chest pain, unspecified (principal)
CPT/HCPCS: A0425; A0427